=== PATIENT | male | born 1960 | race Caucasian/White ===

== ENCOUNTER → 2020-02-13 15:41 | Outpatient (BNVA) | payer BC, SELFPAY | PROVIDERS: PCP Family Medicine; Visit Provider Family Medicine | DX: I10 Essential (primary) hypertension (principal); F41.9 Anxiety disorder, unspecified; Z23 Encounter for immunization | CPT/HCPCS: 80048 ==

== ENCOUNTER → 2020-03-20 13:39 | Outpatient (BNVA) | payer BC, SELFPAY | PROVIDERS: PCP Family Medicine; Visit Provider Psychiatry & Neurology Psychiatry | DX: F41.9 Anxiety disorder, unspecified (principal); F41.1 Generalized anxiety disorder; F33.1 Major depressive disorder, recurrent, moderate | CPT/HCPCS: 99204 ==

== ENCOUNTER → 2020-04-16 14:31 | Outpatient (BNVA) | payer BC, SELFPAY | PROVIDERS: PCP Family Medicine; Visit Provider Family Medicine | DX: I10 Essential (primary) hypertension (principal); Z12.5 Encounter for screening for malignant neoplasm of prostate | CPT/HCPCS: 80053; 80061; 81015; 85025; G0103 ==

== ENCOUNTER → 2020-04-18 08:40 | Outpatient (BNVA) | payer BC, SELFPAY | PROVIDERS: PCP Family Medicine; Visit Provider Psychiatry & Neurology Psychiatry | DX: F41.9 Anxiety disorder, unspecified (principal); F33.1 Major depressive disorder, recurrent, moderate; F41.1 Generalized anxiety disorder; F17.290 Nicotine dependence, other tobacco product, uncomplicated | CPT/HCPCS: 99213 ==

== ENCOUNTER → 2020-05-24 10:10 | Outpatient (BNVA) | payer BC, SELFPAY | PROVIDERS: PCP Family Medicine; Visit Provider Psychiatry & Neurology Psychiatry | DX: F41.9 Anxiety disorder, unspecified (principal); F33.1 Major depressive disorder, recurrent, moderate; F41.1 Generalized anxiety disorder; F17.290 Nicotine dependence, other tobacco product, uncomplicated | CPT/HCPCS: 99214 ==

== ENCOUNTER → 2020-07-09 07:46 | Outpatient (BNVA) | payer BC, SELFPAY | PROVIDERS: PCP Family Medicine; Visit Provider Psychiatry & Neurology Psychiatry | DX: F41.9 Anxiety disorder, unspecified (principal); F33.1 Major depressive disorder, recurrent, moderate; F41.1 Generalized anxiety disorder; F17.290 Nicotine dependence, other tobacco product, uncomplicated | CPT/HCPCS: 99214 ==

== ENCOUNTER → 2020-07-17 10:08 | Outpatient (BNVA) | payer OTHER, SELFPAY | PROVIDERS: PCP Family Medicine; Visit Provider Family Medicine | DX: I10 Essential (primary) hypertension (principal); E78.5 Hyperlipidemia, unspecified; K51.819 Other ulcerative colitis with unspecified complications; F17.290 Nicotine dependence, other tobacco product, uncomplicated | CPT/HCPCS: 80053; 80061 ==

== ENCOUNTER → 2020-08-07 12:43 | Outpatient (BNVA) | payer OTHER, SELFPAY | PROVIDERS: PCP Family Medicine; Visit Provider Psychiatry & Neurology Psychiatry | DX: F41.1 Generalized anxiety disorder (principal); F41.9 Anxiety disorder, unspecified; F33.1 Major depressive disorder, recurrent, moderate; F17.290 Nicotine dependence, other tobacco product, uncomplicated | CPT/HCPCS: 99214 ==

== ENCOUNTER → 2020-08-14 15:45 | Outpatient (BNVA) | payer OTHER, SELFPAY | PROVIDERS: PCP Family Medicine; Visit Provider Internal Medicine | DX: K51.819 Other ulcerative colitis with unspecified complications (principal); Z01.812 Encounter for preprocedural laboratory examination; E78.5 Hyperlipidemia, unspecified; Z12.5 Encounter for screening for malignant neoplasm of prostate; I10 Essential (primary) hypertension | CPT/HCPCS: 83550; 85025; 85651; 86140; 87635 ==

== ENCOUNTER 2020-08-19 08:26 | Day surgery (SDC) | payer OTHER, SELFPAY ==
[2020-08-15 12:59] VITALS: BMI 28.8
--- NOTE | 2020-08-19 09:02 | ANES.PREANE2 ---
Pre-Anesthetic Assessment Pre-Anesthetic Assessment: Height/Weight: Height 1.78 m Weight 91.172 kg Preop Diagnosis: t Proposed Procedure: Operation Date: 08/19/20 10:30 Proposed Procedures p Colonoscopy 95665 K51.819(Not Applicable) - Ronen Benavides MD Was Beta Ethan taken within 24 hours: Yes Was Clonidine taken within 24 hours: N/A Social: Social History: No alcohol and No tobacco Exam: Pre-Anes Outpt Exam: alert, oriented x 3 and regular rate & rhythm Airway: Submandibular: WNL Cervical ROM: WNL MP: 2 Dentition: False CV/HEM: CV/HEM: Anemia GI: Comments: UC Neuropsych: Neuropsych: Anxiety and Depression Anesthetic Plan: ASA status: 3 Anesthesia: MAC Risk of > 500 ml blood loss (7ml/kg in children): No PFSH Anesthesia PFSH: Medical History (Updated 08/14/20 @ 10:54 by Ronen Benavides MD) Anxiety Depression Essential hypertension Heart disease Hypokalemia Migraines Ulcerative colitis Since 2005. Surgical History H/O cardiac radiofrequency ablation History of neck surgery Family History Other CAD (coronary artery disease) Psychiatric illness Social History Smoking and tobacco status: current every day smoker e-cigarettes E-Cigarette Details: vaporizer device and with nicotine E-cig/vape details: with nicotine Quit status (tobacco): has tried quititng Number of times tried to quit tobacco: 10 Second hand smoke exposure: No Alcohol intake: current Alcohol intake frequency: few times a week Alcohol type: beer Current gender identity: Male Data Anesthesia Cardiac Studies: No Data to Display
[2020-08-19 09:19] VITALS: BP 118/65; PULSE 63; RESP 16; TEMP 36.1; O2SAT 100
[2020-08-19] MEDS: sodium chloride 0.9% 1,000 ML 30 ML IV (09:41)
--- NOTE | 2020-08-19 10:03 | W.PM.OPSUD ---
Surgery/Procedure H&P Update DATE OF PROCEDURE: August 19, 2020 DATE H&P PERFORMED: 08/14/20 PREOP DIAGNOSIS: t PLANNED PROCEDURE: Operation Date: 08/19/20 10:30 Proposed Procedures p Colonoscopy 39297 K51.819(Not Applicable) - Ronen Benavides MD
--- NOTE | 2020-08-19 10:04 | W.PM.OPSUD ---
Surgery/Procedure H&P Update DATE OF PROCEDURE: August 19, 2020 DATE H&P PERFORMED: 08/14/20 PREOP DIAGNOSIS: t PLANNED PROCEDURE: Operation Date: 08/19/20 10:30 Proposed Procedures p Colonoscopy 89823 K51.819(Not Applicable) - Ronen Benavides MD
[2020-08-19 10:50] VITALS: BP 98/54; PULSE 61; RESP 18; TEMP 36.8; O2SAT 97
--- NOTE | 2020-08-19 10:54 | ANE.PACU2 ---
Inpatient post-anesthesia follow up: Airway intact: Yes Vital signs: Temperature 97 F Pulse Rate 63 Respiratory Rate 16 Blood Pressure 118/65 Pulse Oximetry 100 Oxygen Delivery Me thod Room Air Oxygen Flow Rate Fraction of Inspir ed Oxygen Hydration adequate: Yes Nausea and vomiting: No Pain level: 1 Mental status: Baseline
[2020-08-19 11:15] VITALS: BP 131/75; PULSE 56; RESP 18; O2SAT 95
--- NOTE | 2020-08-19 11:23 | SUR.PHASEII ---
1123 CT scan requires prior auth per pts insurance. Pt to be scheduled through centralized scheduling and called with date and time.
[2020-08-19 12:24] LABS: Carcinoembryonic Antigen 1.2 ng/mL (0.0-4.7)
== END 2020-08-19 11:30 | disposition home or self-care (01) ==
PROVIDERS: PCP Family Medicine; Visit Provider Internal Medicine
PROC: 0DJD8ZZ Inspection of Lower Intestinal Tract, Via Natural or Artificial Opening Endoscopic (ICD-10-PCS; CPT 45378; principal; 2020-08-19 10:30)
DX: K51.819 Other ulcerative colitis with unspecified complications (principal); F41.9 Anxiety disorder, unspecified; F32.9 Major depressive disorder, single episode, unspecified; I11.0 Hypertensive heart disease with heart failure; I50.9 Heart failure, unspecified; Z82.49 Family history of ischemic heart disease and other diseases of the circulatory system; F17.290 Nicotine dependence, other tobacco product, uncomplicated
CPT/HCPCS: 36415; 45380; 82378; 88305; 96360; J2704; J7030

== ENCOUNTER 2020-08-23 11:31 | Outpatient (CLI) | payer OTHER, SELFPAY ==
--- NOTE | 2020-08-23 11:43 | CT_ITS ---
WS: [id number] CT ABDOMEN AND PELVIS WITH CONTRAST HISTORY: NEW MASS IN RIGHT COLON TECHNIQUE: Imaging performed of the abdomen and pelvis with IV contrast. Single phase imaging of the abdomen. Coronal and sagittal reformats are submitted. All CT scans at [facility] use at least one of these dose optimization techniques: automated exposure control; mA and/or kV adjustment per patient size (includes targeted exams where dose is matched to clinical indication); or iterativ e reconstruction. IV CONTRAST: Omnipaque 300; 95 mL IV. Oral contrast: Yes. DLP: 1393.97 mGycm COMPARISON: None available. Lower thorax: Lung bases are clear. Heart is normal size. Small hiatal hernia. Liver/biliary system: [facility] LEFT lobe of the liver measures 4 mm. No bile duct dilatation or metastati c lesions. Gallbladder: Normal. No gallstones or wall thickening. No pericholecystic fluid. Pancreas: Normal size pancreas and pancreatic duct. No adjacent inflammation. Spleen: Normal size with granulomata. Adrenal glands: Normal. Right kidney: Small cortical hypodensities are too small to characterize. May be early cyst. No obstr uction. Left kidney: Normal. Aorta: Mild aneurysmal dilatation of the infrarenal aorta to 3.1 cm. Large amount of calcified plaque is not contiguous. There is also intimal thickening is causing mild narrowing of the lumen. Atherosc lerotic changes extend into the iliac arteries bilaterally. Lymphadenopathy: There are numerous but subcentimeter lymph nodes in the mesentery and RIGHT lower qu adrant. Largest lymph nodes measure approximately 8 mm near the celiac axis. Additional 7 to 8 mm lym ph nodes in the RIGHT lower quadrant adjacent to the cecum. Free fluid: None. GI tract: Significant abnormality involving the RIGHT colon. At the terminal ileum and extending into the cecum is a soft tissue mass causing narrowing of the lumen. The solid mass component measures 5. 3 x 5.7 cm. Extending into the ascending colon is a fatty mass with negative Hounsfield units and enh ancing septa. This fatty component extends over a length of 6.6 cm x 7.1 x 4.4 cm. Towards the hepati c flexure and proximal descending colon is diffuse wall thickening. There is no obstruction apparent at this time. The appendix is identified and enters into the mass at the cecum. Abdominal wall: Unremarkable abdominal wall. No hernia. Pelvis: Central prostate gland calcifications. No free fluid. Urinary bladder is negative. Bones: Moderate spondylitic changes in the thoracic and lumbar spines. Schmorl's nodes with no fractu res. CT/CT abdomen pelvis w con* [id number] IMPRESSION: 1. Abnormal cecal mass with extension into the ascending colon and terminal il eum. There is a soft tissue solid mass component at the cecum with an adjacent lipomatous mass with septations extending into the ascending colon with wall th ickening through the mid transverse colon. Neoplasm suspected. There are fatty components could be a liposarcoma. May be a benign lipoma within adjacent colon neoplasm. 2. Base of the appendix is associated with the soft tissue component at the ce cum but no obstruction. 3. Numerous lymph nodes adjacent to the colon. Suspect metastatic involvement although the diameter of the lymph nodes is not significantly enlarged but the number is increased. 4. Mild atherosclerosis and aneurysmal dilatation of the infrarenal aorta to 3 .1 cm. 5. No adrenal mass. Notified Ronen Benavides MD at 08/23/2020 2:08 PM.
[2020-08-23] MEDS: iohexol 300 mg/mL 100 mL Btl IV (13:41)
[2020-08-23] MEDS: iohexol 300 mg/mL 50 mL Btl PO (13:42)
== END 2020-08-23 11:32 | disposition home or self-care (01) ==
LOC: RADWPI 11:37
PROVIDERS: PCP Family Medicine; Visit Provider Internal Medicine
DX: K63.89 Other specified diseases of intestine (principal); I70.0 Atherosclerosis of aorta; I71.4 Abdominal aortic aneurysm, without rupture
CPT/HCPCS: 74177; Q9967

== ENCOUNTER → 2020-09-04 10:50 | Outpatient (BNVA) | payer OTHER, SELFPAY | PROVIDERS: PCP Family Medicine; Visit Provider Surgery | DX: K63.89 Other specified diseases of intestine (principal) | CPT/HCPCS: 87635 ==

== ENCOUNTER 2020-09-09 13:20 | Inpatient (IN) | payer OTHER, SELFPAY ==
[2020-09-06 14:29] VITALS: BMI 28.7
[2020-09-09] VITALS (17 sets, daily range): BP systolic 128–167; BP diastolic 74–95; PULSE 55–86; RESP 12–20; TEMP 36.2–36.8; O2SAT 93–100
[2020-09-09] MEDS: sodium chloride 0.9% 1,000 ML 30 ML IV (08:06)
--- NOTE | 2020-09-09 08:43 | ANES.PREANE2 ---
Pre-Anesthetic Assessment Pre-Anesthetic Assessment: Height/Weight: Height 1.78 m Weight 90.718 kg Temp Pulse Resp BP Pulse Ox 97.9 F 72 18 159/92 98 09/09/20 07:48 09/09/20 07:48 09/09/20 07:48 09/09/20 07:48 09/09/20 07:48 Preop Diagnosis: cecal mass Proposed Procedure: Operation Date: 09/09/20 09:45 Proposed Procedures p Lap poss open right hemicolectomy 78722 K6.89(Not Applicable) - Alden Muñoz MD Familial anesthetic complications: nONE Was Beta Ethan taken within 24 hours: Yes Was Clonidine taken within 24 hours: N/A Last intake: Intake Last Liquid Date 09/08/20 Last Liquid Time 21:00 Last Solid Date 09/07/20 Social: Comment: VAPES Exam: Pre-Anes Outpt Exam: alert, oriented x 3, clear to auscultation bilaterally and regular rate & rhythm Airway: Cervical ROM: WNL MP: 2 Dentition: False CV/HEM: CV/HEM: Anemia and HTN GI: Comments: Ulcerative colitis Neuropsych: Neuropsych: Anxiety Anesthetic Plan: ASA status: 3 Anesthesia: General Risk of > 500 ml blood loss (7ml/kg in children): No Meds/Allergies Current Medications: Current Medications Generic Name Dose Route Start Last Admin Trade Name Freq PRN Reason Stop Dose Admin Sodium Chloride 1,000 mls @ 30 ml s/hr 09/09/20 07:45 09/09/20 08:06 Sodium Chloride 0.9% IV 09/10/20 07:44 30 mls/hr .Q24H PETTY Administration PFSH Anesthesia PFSH: Medical History (Updated 08/20/20 @ 10:44 by Rhonda Nath DO) Anxiety Depression Essential hypertension Heart disease Hypokalemia Migraines Ulcerative colitis Since 2005. Surgical History (Updated 09/02/20 @ 11:30 by Alden Muñoz MD) H/O cardiac radiofrequency ablation History of neck surgery Status post colonoscopy Family History Other CAD (coronary artery disease) Psychiatric illness Social History Smoking and tobacco status: former smoker Second hand smoke exposure: No Alcohol intake: current Alcohol intake frequency: few times a week Alcohol type: beer Current gender identity: Male Data Anesthesia Cardiac Studies: No Data to Display
--- NOTE | 2020-09-09 08:59 | W.PM.OPSUD ---
Surgery/Procedure H&P Update DATE OF PROCEDURE: September 09, 2020 DATE H&P PERFORMED: 09/02/20 H&P UPDATE INFORMATION: I have reviewed H&P completed within last 30 days, I have examined patient prior to procedure and No changes to prior documentation PREOP DIAGNOSIS: cecal mass PLANNED PROCEDURE: Operation Date: 09/09/20 09:45 Proposed Procedures p Lap poss open right hemicolectomy 70589 K6.89(Not Applicable) - Alden Muñoz MD
[2020-09-09] MEDS: metroNIDAZOLE IV 500 MG/100 ML PREMIX 100 MG IV (10:10)
[2020-09-09] MEDS: levofloxacin-dextrose 5 % 500 MG/100 ML PREMIX 100 MG IV (10:22)
--- NOTE | 2020-09-09 12:39 | PM.OP ---
Operative Report Date of procedure: September 09, 2020 Pre-op Diagnosis: cecal mass Post-op diagnosis: same Procedure Done: Laparoscopic right hemicolectomy with extracorporeal ileocolic anastomosis Specimens removed/disposition: Ileum, cecum, ascending colon proximal transverse colon Surgeon: Alden Muñoz Anesthesia: General Condition: stable Disposition: PACU Procedure: The patient was taken to the operating room and placed in the modified lithotomy position under general anesthesia after IV antibiotic had been administered. A Loyola catheter was placed and the abdomen was prepped and draped in a sterile manner. A 2 cm midline supraumbilical incision was made and using open Yu technique the peritoneal cavity was entered and an 11 mm port was placed and 15 mm of pneumoperitoneum was created. 10 mm 30? scope was introduced. 5 mm port was placed in the right upper quadrant, left upper quadrant and in the suprapubic area under direct visualization. The patient was placed in Trendelenburg position and steep tilt to the left placing the small bowel in the left side within the peritoneal cavity and the transverse colon was retracted superiorly. The cecum was retracted laterally and the tenting of the ileocolic pedicle was noted. The peritoneum overlying the pedicle was opened and a window created posterior to the pedicle just lateral to the third portion of the duodenum. Dissection was carried superiorly lateral to the duodenum along the avascular plane. Using Voyent energy device the ileocolic pedicle was divided. The avascular plane was dissected laterally towards the right paracolic gutter and superiorly towards the hepatic flexure.The transverse mesocolon was divided using energy device and this was continued medially. The mid colic vessels were skeletonized and divided with LigaSure. The anterior leaflet of the greater omentum was divided near the midpoint of the transverse colon to enter the lesser sac. The greater omentum was divided and the hepatic flexure was taken down. The dissection was carried along the line of Toldt until the ascending colon and down to ileum to completely free it up. The mesentery of the terminal ileum was divided with a plan for excision of 10cm of ileum. 20 cc of saline mixed with 20 cc of 0.5% Marcaine mixed with 20 cc of Exparel was injected in the midclavicular line under laparoscopic visualization for a TAP block. At this point the pneumoperitoneum was released and the mobilized colon and small bowel was exteriorized through the supraumbilical incision which had been extended and a wound protector had been placed. Interrupted 4-0 Vicryl suture was placed to approximate the ileum to the transverse colon and enterotomies were created on the transverse colon and small bowel and and 75 mm blue load KRISTI stapler was introduced and fired creating a [id number] stapled anastomosis. There was no bleeding noted from the staple line and enterotomies were grasped with Allis clamps and another load of 75 mm blue load KRISTI stapler x 2 was fired to resect the specimen distal to the enterotomies. 4-0 Vicryl sutures were placed on the edges and the intersection of the staple line. The bowel was reintroduced into the peritoneal cavity and the staple line was covered with omentum. The peritoneal cavity was irrigated with saline. All ports were removed under direct visualization and there was no bleeding noted from the port sites. The fascia at the midline incision was closed using running #1 loop PDS. The wound was irrigated with saline, and subcutaneous tissue approximated using 3-0 Vicryl suture and skin at all 4 port sites were closed with 4-0 Monocryl and Dermabond. The patient was transferred to the recovery room in stable condition with a Loyola catheter
--- NOTE | 2020-09-09 12:54 | SUR.PHASEI ---
1254- PATIENT RATES PAIN 8-9 ON 0-10 PAIN SCALE STATING THE ONE IN THE CENTER IS A LITTLE SORE HR 56 BPM, RESPIRATIONS 14. WILL CONTINUE TO MONITOR
[2020-09-09] MEDS: D5-NS 0.45% + KCL 20 mEq 20 MEQ/1,000 ML BAG 100 MEQ IV (14:04)
[2020-09-09] MEDS: famotidine 20 mg/2 mL INJ IVP (14:07)
[2020-09-09] MEDS: HYDROcodone-acetaminophen 5-325 mg Tablet 1 TAB PO ×2 (14:07→20:47)
[2020-09-09] MEDS: morphine 4 mg/mL SDV 1 mL 3 MG IVP ×2 (14:56→16:38)
--- NOTE | 2020-09-09 15:47 | ANE.PACU2 ---
Inpatient post-anesthesia follow up: Airway intact: Yes Vital signs: Temperature 98.2 F Pulse Rate 61 Respiratory Rate 18 Blood Pressure 148/82 Pulse Oximetry 94 Oxygen Delivery Me thod Room Air Oxygen Flow Rate 6 Fraction of Inspir ed Oxygen Hydration adequate: Yes Nausea and vomiting: No Pain level: 3 Mental status: Baseline
[2020-09-09] MEDS: clindamycin 600 MG/50 ML PREMIX 100 MG IV (17:42)
[2020-09-09] MEDS: carvedilol 25 mg Tablet PO (17:46)
[2020-09-09] MEDS: sennosides-docusate Tablet 1 TAB PO (17:46)
[2020-09-09] MEDS: ciprofloxacin 400 MG/200 ML PREMIX 200 MG IV (18:16)
--- NOTE | 2020-09-09 18:53 | PC.NURSE ---
Report to Domitila RUBIO at this time.
[2020-09-09] MEDS: trazodone 50 mg Tablet 100 MG PO (20:47)
[2020-09-10] VITALS (10 sets, daily range): BP systolic 121–154; BP diastolic 62–88; PULSE 62–82; RESP 16–18; TEMP 36.6–37.1; O2SAT 93–96
[2020-09-10] MEDS: D5-NS 0.45% + KCL 20 mEq 20 MEQ/1,000 ML BAG 100 MEQ IV (00:02)
[2020-09-10] MEDS: morphine 4 mg/mL SDV 1 mL 3 MG IVP ×2 (01:06→09:37)
[2020-09-10] MEDS: famotidine 20 mg/2 mL INJ IVP ×2 (01:06→12:25)
[2020-09-10 02:25] LABS: Basophils % 0.1 %; Hematocrit 37.9 % (42.0-52.0); Hemoglobin 11.4 g/dL (11.7-16.6); Lymphocytes # 0.7 10^3/uL (0.8-4.8); Lymphocytes % 5.4 %; Mean Corpuscular HGB Conc 30.1 g/dL (30.0-36.0); Mean Corpuscular Hemoglobin 24.8 pg (28.0-34.0); Mean Corpuscular Volume 82.6 fL (80-94); Mean Platelet Volume 10.2 fL (7.4-10.4); Monocytes # 0.4 10^3/uL (0.2-0.9); Monocytes % 3.1 %; Neutrophils % 91.1 %; Nucleated Red Blood Cells % 0 %; Platelet Count 369 10^3/cmm (130-400); Red Blood Count 4.59 10^6/uL (4.1-5.3); Red Cell Distribution Width 15.1 % (12.1-15.1); White Blood Count 12.9 10^3/uL (4.0-10.0)
[2020-09-10 02:45] LABS: Anion Gap 15.2 (5-19); Blood Urea Nitrogen 12 mg/dL (8-23); Calcium 8.3 mg/dL (8.5-10.5); Carbon Dioxide 19 mmol/L (22-29); Chloride 104 mmol/L (98-107); Glucose 161 mg/dL (65-115); Osmolality Calculated 281 mOsm/kg (285-295); Potassium 4.2 mmol/L (3.5-5.1); Sodium 134 mmol/L (136-145)
[2020-09-10] MEDS: clindamycin 600 MG/50 ML PREMIX 100 MG IV (03:12)
[2020-09-10 03:47] LABS: Carcinoembryonic Antigen 1.4 ng/mL (0.0-4.7)
[2020-09-10] MEDS: ciprofloxacin 400 MG/200 ML PREMIX 200 MG IV (05:58)
[2020-09-10] MEDS: hydroCHLOROthiazide 25 mg Tablet PO (05:58)
[2020-09-10] MEDS: HYDROcodone-acetaminophen 5-325 mg Tablet 1 TAB PO ×2 (08:43→17:04)
[2020-09-10] MEDS: amlodipine 10 mg Tablet PO (08:44)
[2020-09-10] MEDS: sennosides-docusate Tablet 1 TAB PO ×2 (08:44→17:04)
[2020-09-10] MEDS: carvedilol 25 mg Tablet PO ×2 (08:44→17:04)
--- NOTE | 2020-09-10 10:22 | P.PN_ITS ---
Subjective Subjective: Interval history: He denies any vomiting, had episode of nausea, abdominal pain is reasonably controlled, no flatus or BM Vitals/I&O/Wt Last Vital Signs Temp 98.7 F 09/10/20 07:36 Pulse 68 09/10/20 07:36 Resp 18 09/10/20 09:37 BP 149/85 09/10/20 07:36 Pulse Ox 94 09/10/20 07:36 09/09/20 09/10/20 09/10/20 22:59 06:59 14:59 Intake Total 250 / 2196.667 1046.667 / 2196.667 480 / 480 Output Total 350 / 950 450 / 950 800 / 800 Balance -100 / 1246.667 596.667 / 1246.667 -320 / -320 Physical Exam Narrative: EXAM NARRATIVE: Abdomen: Soft, nondistended, tender, incision clean dry and intact Urinary Catheter Management^: F: Cath Placed During This Visit: yes, but has since been removed by the nurse Reason for Continuing Indwelling Catheter: Decision to DC Catheter Urinary Catheter Date of Insertion: 09/09/20 Urinary Catheter Time of Insertion: 10:15 Date Urinary Catheter Removed: 09/10/20 Time Urinary Catheter Discontinued: 09:15 Data : 09/10/20 02:03 09/10/20 02:03 A&P Assessment and plan (1) S/P right hemicolectomy: 60-year-old male status post right hemicolectomy for cecal mass DC Loyola Start clear liquid diet Decrease IV fluids to 30 cc/h Morphine [place] and Tylenol for pain control Senna docusate for bowel regimen Lovenox SCD for DVT prophylaxis Pepcid for GI prophylaxis Ambulate ad monty. Incentive spirometry Patient will need greater than 2 nights of inpatient stay to ensure resolution of ileus and rule out complications Status: Acute Attestations Medical Necessity Statement*: Status post right hemicolectomy requiring continued inpatient stay Coding Level of Care Code Acute [employer] Ac[employer] Attorney for Chg Fwd Diagnoses S/P right hemicolectomy Z90.49
--- NOTE | 2020-09-10 12:38 | PC.CHAP ---
Pastoral Care Encounter/Spiritual Assessment Type of Contact [] Declined project geologist visit [x] Patient/Family/Request visit [] Outpatient visit [] Follow-up visit [] Physician referral [] Code/Alert [x] Routine visit [] Staff referral [] Actively dying [] Patient sleeping [] Family support [] [] Out of room [] Palliative care [] [] Receiving care in room [] Pre-surgical visit [] Trauma [] Long length of stay [] ICU visit [] Other: Relational/Emotional Strength [x] Patient feels connected with others/family/visitors/staff [] Distress [] Loneliness/isolation [] Abandonment Spirituality of Patient [x] Person of [place] [x] Attends Jain of their [place] [x] Believes in Prayer [] Reads Bible or Amish materials [] There are Spiritual issues to be addressed Senior Grants Officer Interventions [x] Prayer [] Active listening [] Non-anxious presence [] Spiritual/emotional support [] Crisis/trauma care [] Spiritual counseling [] Bereavement support [] Provided bereavement packet [] Provided Bible/devotional materials [] Provided toy/stuffed animal, coloring book to patient or family member [] Provided Communion [] Anointing/Protem [] Salvation [] Completed spiritual assessment [] Other: Impact on Illness or Injury [] Angry [] Fearful [] Anxious [] Often cries [] Exhaustion [] Unable to work [] Unable to attend church [] Unable to walk/stand [] Unable to read [] Unable to drive [] Unable to eat/drink [] Unable to sleep [] Unable to be with family [] Patient intubated [] Other: Summary Had a great visit with this godly couple. His was present. Both were happy, positive in their outlook, and connected to life. We shared names of people we knew and of their own family. Time spent with patient 10 minutes at least.
--- NOTE | 2020-09-10 13:54 | PC.NURSE ---
AMBULATION PT HAS AMBULATED MULTIPLE TIMES IN [facility] - AT SIDE
[2020-09-11] VITALS (13 sets, daily range): BP systolic 106–177; BP diastolic 66–92; PULSE 62–82; RESP 18–20; TEMP 35–37.9; O2SAT 91–98
[2020-09-11] MEDS: D5-NS 0.45% + KCL 20 mEq 20 MEQ/1,000 ML BAG 30 MEQ IV (00:27)
[2020-09-11] MEDS: HYDROcodone-acetaminophen 5-325 mg Tablet 1 TAB PO ×2 (00:27→07:21)
[2020-09-11] MEDS: famotidine 20 mg/2 mL INJ IVP ×2 (02:44→14:21)
[2020-09-11 02:48] LABS: Basophils % 0.2 %; Eosinophils % 0.1 %; Hematocrit 38.3 % (42.0-52.0); Hemoglobin 11.8 g/dL (11.7-16.6); Lymphocytes # 1.8 10^3/uL (0.8-4.8); Lymphocytes % 10.5 %; Mean Corpuscular HGB Conc 30.8 g/dL (30.0-36.0); Mean Corpuscular Hemoglobin 24.8 pg (28.0-34.0); Mean Corpuscular Volume 80.5 fL (80-94); Mean Platelet Volume 10.7 fL (7.4-10.4); Monocytes % 5.7 %; Neutrophils # 13.89 10^3/uL (1.8-7.7); Nucleated Red Blood Cells % 0 %; Platelet Count 400 10^3/cmm (130-400); Red Blood Count 4.76 10^6/uL (4.1-5.3); Red Cell Distribution Width 15.2 % (12.1-15.1); White Blood Count 16.7 10^3/uL (4.0-10.0)
[2020-09-11 03:10] LABS: Anion Gap 13.1 (5-19); Blood Urea Nitrogen 12 mg/dL (8-23); Calcium 8.7 mg/dL (8.5-10.5); Carbon Dioxide 23 mmol/L (22-29); Chloride 105 mmol/L (98-107); Glucose 111 mg/dL (65-115); Osmolality Calculated 284 mOsm/kg (285-295); Potassium 4.1 mmol/L (3.5-5.1); Sodium 137 mmol/L (136-145)
[2020-09-11] MEDS: morphine 4 mg/mL SDV 1 mL 3 MG IVP ×3 (03:37→20:04)
[2020-09-11] MEDS: hydroCHLOROthiazide 25 mg Tablet PO (06:17)
[2020-09-11] MEDS: amlodipine 10 mg Tablet PO (08:29)
[2020-09-11] MEDS: carvedilol 25 mg Tablet PO ×2 (08:29→17:55)
[2020-09-11] MEDS: sennosides-docusate Tablet 1 TAB PO ×2 (08:29→17:55)
--- NOTE | 2020-09-11 11:10 | P.PN_ITS ---
Subjective Subjective: Interval history: Patient had been complaining of abdominal pain, had a small episode of emesis, no flatus or BM Vitals/I&O/Wt Last Vital Signs Temp 98.7 F 09/11/20 09:15 Pulse 74 09/11/20 09:15 Resp 18 09/11/20 09:15 BP 134/74 09/11/20 09:15 Pulse Ox 96 09/11/20 09:15 09/10/20 09/11/20 09/11/20 22:59 06:59 14:59 Intake Total 1820 / 2905 125 / 2905 240 / 240 Output Total 250 / 1925 875 / 1925 Balance 1570 / 980 -750 / 980 240 / 240 Physical Exam Narrative: EXAM NARRATIVE: Abdomen: Soft, nondistended, tender, incision clean dry and intact Urinary Catheter Management^: F: Cath Placed During This Visit: yes, but has since been removed by the nurse Reason for Continuing Indwelling Catheter: Decision to DC Catheter Urinary Catheter Date of Insertion: 09/09/20 Urinary Catheter Time of Insertion: 10:15 Date Urinary Catheter Removed: 09/10/20 Time Urinary Catheter Discontinued: 09:15 Data : 09/11/20 02:09 09/11/20 02:09 A&P Assessment and plan (1) S/P right hemicolectomy: 60-year-old male status post right hemicolectomy for cecal mass with postop ileus WBC increased to 16.7, patient had T-max of 100.3, not tachycardic. started Levaquin and Flagyl empirically Vitals every 4 hours Stay on clear liquid diet Keep IV fluids at 30 cc/h Morphine [place] and Tylenol for pain control Senna docusate for bowel regimen Lovenox SCD for DVT prophylaxis Pepcid for GI prophylaxis Ambulate ad monty. 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
[2020-09-11] MEDS: ondansetron 2 mg/ML SDV 2 mL 4 MG IVP (11:32)
[2020-09-11] MEDS: enoxaparin 40 mg/0.4 mL Syringe SUBCUT (11:32)
[2020-09-11] MEDS: acetaminophen 325 mg Tablet 650 MG PO (11:32)
[2020-09-11] MEDS: metroNIDAZOLE 500 MG Tablet PO ×2 (14:21→20:04)
[2020-09-11] MEDS: ALPRAZolam 0.5 mg Tablet PO (20:04)
[2020-09-12] MEDS: famotidine 20 mg/2 mL INJ IVP ×2 (01:23→12:39)
[2020-09-12 02:39] LABS: Basophils % 0.3 %; Eosinophils # 0.1 10^3/uL (0.0-0.8); Eosinophils % 0.7 %; Hematocrit 38.9 % (42.0-52.0); Lymphocytes # 2.4 10^3/uL (0.8-4.8); Lymphocytes % 17.8 %; Mean Corpuscular HGB Conc 30.8 g/dL (30.0-36.0); Mean Corpuscular Hemoglobin 24.8 pg (28.0-34.0); Mean Corpuscular Volume 80.5 fL (80-94); Mean Platelet Volume 10.5 fL (7.4-10.4); Monocytes % 7.5 %; Neutrophils # 9.71 10^3/uL (1.8-7.7); Neutrophils % 73.3 %; Nucleated Red Blood Cells % 0 %; Platelet Count 408 10^3/cmm (130-400); Red Blood Count 4.83 10^6/uL (4.1-5.3); Red Cell Distribution Width 15.3 % (12.1-15.1); White Blood Count 13.2 10^3/uL (4.0-10.0)
[2020-09-12 03:01] LABS: Anion Gap 13.8 (5-19); Blood Urea Nitrogen 17 mg/dL (8-23); Calcium 8.6 mg/dL (8.5-10.5); Carbon Dioxide 24 mmol/L (22-29); Chloride 102 mmol/L (98-107); Glucose 114 mg/dL (65-115); Osmolality Calculated 284 mOsm/kg (285-295); Potassium 3.8 mmol/L (3.5-5.1); Sodium 136 mmol/L (136-145)
[2020-09-12 04:35] VITALS: BP 109/69; PULSE 71; RESP 18; TEMP 37; O2SAT 92
[2020-09-12] MEDS: HYDROcodone-acetaminophen 5-325 mg Tablet 1 TAB PO ×3 (04:46→18:28)
[2020-09-12] MEDS: D5-NS 0.45% + KCL 20 mEq 20 MEQ/1,000 ML BAG 30 MEQ IV (04:47)
[2020-09-12] MEDS: levoFLOXacin 750 mg Tablet PO (05:45)
[2020-09-12] MEDS: hydroCHLOROthiazide 25 mg Tablet PO (05:45)
--- NOTE | 2020-09-12 05:47 | PC.NURSE ---
SHIFT SUMMARY Says he rested much better tonight. Took a Xanax at bedtime and says really helped. Has ambulated in gaspar this shift and andres well. Still is not passing flatus or had a BM but says he can feel his stomach starting to rumble some All incisions, 3 stabs and medial incision C&D with dermabond closure. Abd soft with tenderness present. Urinating per urinal and taking clear liquids without nausea tonight. IV infusing at 30m/hr rate. Received IV Morphine X1 at bedtime and po Hydrocodone this am for abd pain. Is very pleasant
--- NOTE | 2020-09-12 06:59 | P.PN_ITS ---
Subjective Subjective: Interval history: Patient had been feeling a lot better, no nausea or vomiting, no flatus or BM, has been afebrile, does not feel distended Vitals/I&O/Wt Last Vital Signs Temp 97.5 F L 09/12/20 12:00 Pulse 50 L 09/12/20 12:00 Resp 18 09/12/20 12:00 BP 139/79 09/12/20 12:00 Pulse Ox 96 09/12/20 12:00 09/12/20 09/12/20 09/12/20 06:59 14:59 22:59 Intake Total 210 / 1240 360 / 360 Output Total 500 / 700 100 / 100 Balance -290 / 540 260 / 260 Physical Exam Narrative: EXAM NARRATIVE: Abdomen: Soft, minimally tender, nondistended, incision clean dry intact Urinary Catheter Management^: F: Cath Placed During This Visit: yes, but has since been removed by the nurse Reason for Continuing Indwelling Catheter: Decision to DC Catheter Urinary Catheter Date of Insertion: 09/09/20 Urinary Catheter Time of Insertion: 10:15 Date Urinary Catheter Removed: 09/10/20 Time Urinary Catheter Discontinued: 09:15 Data : 09/13/20 05:42 09/13/20 05:42 A&P Assessment and plan (1) S/P right hemicolectomy: 60-year-old male status post right hemicolectomy for cecal mass with postop ileus, awaiting return of bowel function WBC down to 13.2, afebrile, not tachycardic. started Levaquin and Flagyl empirically Vitals every 4 hours Stay on clear liquid diet Keep IV fluids at 30 cc/h Morphine [place] and Tylenol for pain control Senna docusate for bowel regimen Lovenox SCD for DVT prophylaxis Pepcid for GI prophylaxis Ambulate ad monty. Incentive spirometry Patient will need greater than 2 nights of inpatient stay to ensure resolution of ileus and rule out complications Status: Acute Attestations Medical Necessity Statement*: Status post right hemicolectomy requiring continued inpatient stay to ensure resolution of ileus Coding Level of Care Code Acute Wildlife Science Professor for Mer Fwbriana Diagnoses S/P right hemicolectomy Z90.49
[2020-09-12 08:00] VITALS: BP 113/83; PULSE 82; RESP 18; TEMP 37; O2SAT 97
[2020-09-12] MEDS: carvedilol 25 mg Tablet PO ×2 (08:47→17:28)
[2020-09-12] MEDS: metroNIDAZOLE 500 MG Tablet PO ×3 (08:47→20:30)
[2020-09-12] MEDS: sennosides-docusate Tablet 1 TAB PO ×2 (08:47→17:28)
[2020-09-12] MEDS: amlodipine 10 mg Tablet PO (08:47)
[2020-09-12] MEDS: enoxaparin 40 mg/0.4 mL Syringe SUBCUT (10:59)
[2020-09-12 12:00] VITALS: BP 139/79; PULSE 50; RESP 18; TEMP 36.4; O2SAT 96
[2020-09-12] MEDS: acetaminophen 325 mg Tablet 650 MG PO (15:25)
[2020-09-12 16:00] VITALS: BP 117/83; PULSE 69; RESP 18; TEMP 36.8; O2SAT 97
[2020-09-12 19:40] VITALS: BP 113/59; PULSE 60; RESP 18; TEMP 36.6; O2SAT 94
[2020-09-12] MEDS: ALPRAZolam 0.5 mg Tablet PO (20:42)
[2020-09-13 00:04] VITALS: BP 114/77; PULSE 63; RESP 18; TEMP 36.7; O2SAT 94
[2020-09-13] MEDS: famotidine 20 mg/2 mL INJ IVP ×2 (01:44→12:53)
[2020-09-13 04:25] VITALS: BP 135/81; PULSE 77; RESP 18; TEMP 36.7; O2SAT 95
[2020-09-13] MEDS: levoFLOXacin 750 mg Tablet PO (05:53)
[2020-09-13] MEDS: hydroCHLOROthiazide 25 mg Tablet PO (05:53)
[2020-09-13 06:12] LABS: Basophils # 0.1 10^3/uL (0.0-0.1); Basophils % 0.5 %; Eosinophils # 0.3 10^3/uL (0.0-0.8); Eosinophils % 2.9 %; Hematocrit 39.3 % (42.0-52.0); Hemoglobin 12.1 g/dL (11.7-16.6); Lymphocytes # 1.8 10^3/uL (0.8-4.8); Lymphocytes % 15.9 %; Mean Corpuscular HGB Conc 30.8 g/dL (30.0-36.0); Mean Corpuscular Hemoglobin 24.4 pg (28.0-34.0); Mean Corpuscular Volume 79.4 fL (80-94); Mean Platelet Volume 10.2 fL (7.4-10.4); Monocytes % 8.8 %; Neutrophils # 8.18 10^3/uL (1.8-7.7); Neutrophils % 71.2 %; Nucleated Red Blood Cells % 0 %; Platelet Count 395 10^3/cmm (130-400); Red Blood Count 4.95 10^6/uL (4.1-5.3); Red Cell Distribution Width 15.1 % (12.1-15.1); White Blood Count 11.5 10^3/uL (4.0-10.0)
[2020-09-13 06:31] LABS: Anion Gap 14.5 (5-19); Blood Urea Nitrogen 17 mg/dL (8-23); Calcium 8.6 mg/dL (8.5-10.5); Carbon Dioxide 25 mmol/L (22-29); Chloride 100 mmol/L (98-107); Glucose 97 mg/dL (65-115); Osmolality Calculated 283 mOsm/kg (285-295); Potassium 3.5 mmol/L (3.5-5.1); Sodium 136 mmol/L (136-145)
[2020-09-13 08:00] VITALS: BP 141/94; PULSE 73; RESP 16; TEMP 36.8; O2SAT 97
[2020-09-13] MEDS: carvedilol 25 mg Tablet PO ×2 (08:06→17:15)
[2020-09-13] MEDS: amlodipine 10 mg Tablet PO (08:06)
[2020-09-13] MEDS: sennosides-docusate Tablet 1 TAB PO (08:06)
[2020-09-13] MEDS: metroNIDAZOLE 500 MG Tablet PO ×2 (08:06→14:55)
[2020-09-13] MEDS: HYDROcodone-acetaminophen 5-325 mg Tablet 1 TAB PO ×2 (08:15→14:57)
[2020-09-13 11:55] VITALS: BP 113/81; PULSE 60; RESP 16; TEMP 36.7; O2SAT 60
[2020-09-13] MEDS: enoxaparin 40 mg/0.4 mL Syringe SUBCUT (12:53)
--- NOTE | 2020-09-13 15:50 | P.PN_ITS ---
Subjective Subjective: Interval history: Patient denies any abdominal pain, nausea, vomiting, tolerating clear liquid diet, had bowel movements last night Vitals/I&O/Wt Last Vital Signs Temp 98.1 F 09/13/20 11:55 Pulse 60 09/13/20 11:55 Resp 16 09/13/20 11:55 BP 113/81 09/13/20 11:55 Pulse Ox 60 L 09/13/20 11:55 09/13/20 09/13/20 09/13/20 06:59 14:59 22:59 Intake Total 120 / 120 Output Total 575 / 675 351 / 351 Balance -575 / 165 -231 / -231 Physical Exam Narrative: EXAM NARRATIVE: Abdomen: Soft, nontender, nonrigid, incisions healing well Urinary Catheter Management^: F: Cath Placed During This Visit: yes, but has since been removed by the nurse Reason for Continuing Indwelling Catheter: Decision to DC Catheter Urinary Catheter Date of Insertion: 09/09/20 Urinary Catheter Time of Insertion: 10:15 Date Urinary Catheter Removed: 09/10/20 Time Urinary Catheter Discontinued: 09:15 Data : 09/13/20 05:42 09/13/20 05:42 A&P Assessment and plan (1) S/P right hemicolectomy: 60-year-old male status post right hemicolectomy for cecal mass with postop ileus, awaiting return of bowel function WBC down to 11.5, afebrile, not tachycardic. On Levaquin and Flagyl empirically Vitals every 4 hours Advance to full liquid diet DC IV fluids Morphine [place] and Tylenol for pain control Senna docusate for bowel regimen Lovenox SCD for DVT prophylaxis Pepcid for GI prophylaxis Ambulate ad monty. Incentive spirometry If patient continues to progress hopefully can go home tomorrow Status: Acute Attestations Medical Necessity Statement*: Status post right hemicolectomy, possible discharge tomorrow Coding Level of Care Code Acute Volunteer Assistant for Chg Fwd Diagnoses S/P right hemicolectomy Z90.49
[2020-09-13 16:00] VITALS: BP 113/80; PULSE 81; RESP 16; TEMP 36.4; O2SAT 96
--- NOTE | 2020-09-13 17:56 | P.DS_ITS ---
Discharge Providers Date of Admission: 09/09/20 13:20 Date of Discharge: September 13, 2020 Attending Provider at Admission: Alden Muñoz MD Attending Provider at Discharge: Alden Muñoz MD Primary Care Provider: Rhonda Nath DO Diagnoses at Discharge Discharge Diagnosis (1) S/P right hemicolectomy: Status: Acute Reason for Visit Reason for Visit: lap poss open right hemicoletomy Hospital Course Hospital Course This is a 60-year-old [id number] who underwent lap right hemicolectomy , by day 4 patient had return of bowel function. At time of discharge he was tolerating full liquid diet, his vital signs are stable and his incision is clean dry and intact. His mesalamine has been discontinued for 2 weeks until his follow-up in clinic. 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 Physical Exam Urinary Catheter Management^: F: Cath Placed During This Visit: yes, but has since been removed by the nurse Reason for Continuing Indwelling Catheter: Decision to DC Catheter Urinary Catheter Date of Insertion: 09/09/20 Urinary Catheter Time of Insertion: 10:15 Date Urinary Catheter Removed: 09/10/20 Time Urinary Catheter Discontinued: 09:15 Discharge Data Data Completed and Pending: Completed Studies During Hospitalization Category Date Time Status Pathology: Surgic al [PTH] Routine Pth 09/09/20 12:30 Completed Pending at discharge Category Date Time Status Basic Metabolic P javi AM LABS Lab 09/14/20 04:00 Ordered Basic Metabolic P javi AM LABS Lab 09/15/20 04:00 Ordered Complete Blood Co unt w/Auto AM LABS Lab 09/14/20 04:00 Ordered Complete Blood Co unt w/Auto AM LABS Lab 09/15/20 04:00 Ordered Labs from last 24 hours 09/13/20 09/13/20 05:42 05:42 WBC 11.5 H RBC 4.95 Hgb 12.1 Hct 39.3 L MCV 79.4 L MCH 24.4 L MCHC 30.8 RDW 15.1 Plt Count 395 MPV 10.2 Neut % (Auto) 71.2 Lymph % (Auto) 15.9 [place] % (Auto) 8.8 Eos % (Auto) 2.9 Baso % (Auto) 0.5 Neut # (Auto) 8.18 H Lymph # (Auto) 1.8 [place] # (Auto) 1.0 H Eos # (Auto) 0.3 Baso # (Auto) 0.1 Nucleated RBC % (a uto) 0 Nucleated RBCs # 0.0 Sodium 136 Potassium 3.5 Chloride 100 Carbon Dioxide 25 Anion Gap 14.5 BUN 17 Creatinine 1.0 GFR Calculation 76.0 L Glucose 97 Calculated Osmolal ity 283 L Calcium 8.6 Vitals: Last Vital Signs Temp 97.6 F 09/13/20 16:00 Pulse 81 09/13/20 16:00 Resp 16 09/13/20 16:00 BP 113/80 09/13/20 16:00 Pulse Ox 96 09/13/20 16:00 Discharge Plan Discharge Patient Disposition: Home Condition: Stable Prescriptions: New hydrocodone-acetaminophen 5-325 mg tablet 1 tab PO Q6H PRN (Reason: pain) Qty: 20 RF: 0 hydrocodone-acetaminophen 5-325 mg tablet 1 tab PO Q6H PRN (Reason: pain) Qty: 20 RF: 0 Zofran 4 mg tablet 4 mg PO Q6H PRN (Reason: nausea and vomiting) Qty: 20 RF: 0 Flagyl 500 mg tablet 500 mg PO Q8H 5 Days Qty: 15 RF: 0 Colace 100 mg capsule 100 mg PO BID Qty: 30 RF: 0 levofloxacin 750 mg tablet 750 mg PO DAILY 5 Days RF: 0 Continued eletriptan 40 mg tablet 40 mg PO Q2H PRN (Reason: Migraine Headache) RF: 0 trazodone 50 mg tablet 100 mg PO .HS PRN (Reason: insomnia) Qty: 60 RF: 2 fluoxetine [Prozac] 20 mg capsule 60 mg PO DAILY Qty: 90 RF: 2 melatonin 3 mg capsule 3 mg PO .HS PRN (Reason: sleep) RF: 0 alprazolam 0.5 mg tablet 0.5 mg PO DAILY PRN (Reason: anxiety) Qty: 15 RF: 0 dicyclomine 10 mg capsule 10 mg PO QID PRN (Reason: cramping) Qty: 120 RF: 0 amlodipine 10 mg tablet 10 mg PO DAILY Qty: 90 RF: 0 carvedilol [Coreg] 25 mg tablet 25 mg PO BID Qty: 180 RF: 0 hydrochlorothiazide 25 mg tablet 25 mg PO QAM Qty: 90 RF: 0 ezetimibe [Zetia] 10 mg tablet 10 mg PO DAILY Qty: 90 RF: 0 potassium chloride 10 mEq capsule, extended release 10 meq PO BID Qty: 180 RF: 1 Discontinued mesalamine [Apriso] 0.375 gram capsule,extended release 24hr 1.5 gm PO QAM RF: 0 erythromycin 500 mg tablet 500 mg PO DAILY Qty: 3 RF: 0 neomycin 500 mg tablet 1 g PO ONCE Qty: 6 RF: 0 Discharge Orders: Discharge Order (Routine); Ordered 09/13/20 Ordered By: Alden Muñoz Referrals: Alden Muñoz MD [Physician] - 2 weeks (Please contact Dr. Muñoz's office Wednesday morning to schedule an appointment within 2 weeks. ) Patient Instructions: Hydrocodone/Acetaminophen (By mouth), Metronidazole (By mouth), Laxative, Stool Softeners (By mouth), Ondansetron (By mouth), Levofloxacin (By mouth), Laparoscopic Bowel Resection (DC), Opioid Safety Activity Restrictions/Additional Instructions: Diet Advance to normal diet as tolerated, increase fluid intake as much as possible. Activity Avoid strenuous activity for 2 weeks but continue with daily activities inc luding walking as tolerated. Do not lift more than 10 pounds for 2 weeks Return to work/school You can return to work/ school whenever you feel ready as long as you don?t have to lift more than 10 pounds at work. If you have paperwork that needs to be completed for time off from work, please contact my office Driving You can resume driving once you stop using narcotic pain medications, and tr ansition to non-opioid pain medications like Tylenol, Motrin, Aleve, etc. Medications Pain Take opioid pain medications as prescribed and transition to non-opioid pain medications like Tylenol, Motrin, Aleve etc. over the next few days. The goal of the pain medications is to make the pain bearable and not to be pain free since you recently had surgery. Resume all home medications after surgery as per the medication reconciliation list Nausea Nausea is common after surgery, take nausea medications as needed and stay on a liquid bland diet until nausea resolves. Constipation The combination of surgery, anesthesia and pain medications can result in constipation. Take stool softeners as prescribed. If you do not have a bowel movement in 3 days, please take an xzgk-mzi-panadux laxative like MiraLAX to address the constipation. Diarrhea Use Metamucil if you develop significant diarrhea and avoid stool softeners and laxatives Shower It is ok to shower but avoid getting the wound wet for 48 hours after surgery. Do not soak in bathtub, swimming pool or hot tub for 2 weeks. Wound care If glue has been used on your incisions after surgery, the glue on the incision will peel slowly over the next two weeks. The stitches used are dissolvable and will not need to be removed. Do not apply antibiotics or other medications on the incision Problems with the wound: you can develop some redness around the incision from bruising after surgery. If there is increasing pain, redness, tenderness around the incision with or without drainage, please contact my office to rule out an infection. Sometimes the skin at the incisions can separate, resulting in reopening of the wound. Cover the wound with antibiotic cream and sterile dressings and contact my office. Contact physician Call the office at [phone] during office hours or go the Emergency Room ?Fever to 100.4 or greater ?Shaking chills ?Pain that increases over time ?Redness, warmth, or pus draining from incision sites ?Persistent nausea or inability to take in liquids Discharge Attestations Time Spent in Discharge Care*: less than 30 min Quality Metrics Clinical Quality Measures During this hospital stay, did patient experience: None Coding Level of Care Code Acute Chg FW ALLEY note Diagnoses S/P right hemicolectomy Z90.49
[2020-09-13 18:32] VITALS: BP 113/80; PULSE 81; RESP 16; TEMP 36.4; O2SAT 96
== END 2020-09-13 18:35 | disposition home or self-care (01) | DRG 330 ==
LOC: MEDSURG 15:36
PROVIDERS: Admitting Provider Surgery; PCP Family Medicine; Visit Provider Surgery
PROC: 0DTF4ZZ Resection of Right Large Intestine, Percutaneous Endoscopic Approach (ICD-10-PCS; principal; 2020-09-09 09:45)
DX: K63.9 Disease of intestine, unspecified (principal); K51.90 Ulcerative colitis, unspecified, without complications; F41.9 Anxiety disorder, unspecified; F32.9 Major depressive disorder, single episode, unspecified; I10 Essential (primary) hypertension; Z87.891 Personal history of nicotine dependence
CPT/HCPCS: 36415; 80048; 82378; 85025; 88305; 94664; 96372; 97116; 97161; C9290; J0744; J1650; J1956; J2270; J2370; J2405; J2710; J3010; J3490; J7030; S0030

== ENCOUNTER → 2021-05-19 10:18 | Outpatient (BNVA) | payer MEDICARE, SELFPAY | PROVIDERS: PCP Family Medicine; Visit Provider Family Medicine | DX: I10 Essential (primary) hypertension (principal); E78.5 Hyperlipidemia, unspecified | CPT/HCPCS: 80053; 80061; 82043 ==

== ENCOUNTER 2021-07-03 10:54 | Outpatient (CLI) | payer MEDICARE, SELFPAY ==
--- NOTE | 2021-07-03 11:22 | XR_ITS ---
WS: [id number] Cervical spine, 3 views, 07/03/2021 Clinical Data: acute neck pain Comparison: None. Findings: No compression fractures are seen. There is an anterior cervical disc fusion at C5-C6 with an artificial disc at this level. There is degenerative disc narrowing with anterior and posterior sp urring at C6-C7 There is no prevertebral soft tissue swelling. The odontoid is unremarkable. There ar e calcifications at the level of the carotid bifurcations. The lung apices are normal. XR/XR cervical spine 3V* [id number] Impression: 1. Anterior cervical disc fusion C5-C6. 2. Degenerative disc narrowing at C6-C7 with spurring 2. Minimal calcification at the level of the carotid bifurcations.
== END 2021-07-03 10:55 | disposition home or self-care (01) ==
PROVIDERS: PCP Family Medicine; Visit Provider Family Medicine
DX: M54.2 Cervicalgia (principal); M43.22 Fusion of spine, cervical region
CPT/HCPCS: 72040

== ENCOUNTER → 2021-07-10 10:23 | Outpatient (BNVA) | payer MEDICARE, SELFPAY | PROVIDERS: PCP Family Medicine; Referring Provider Family Medicine; Visit Provider Anesthesiology Pain Medicine | DX: M51.17 Intervertebral disc disorders with radiculopathy, lumbosacral region (principal); M79.602 Pain in left arm; M79.601 Pain in right arm; Z87.891 Personal history of nicotine dependence; M54.2 Cervicalgia | CPT/HCPCS: 99204 ==

== ENCOUNTER → 2021-08-06 09:41 | Outpatient (BNVA) | payer MEDICARE, SELFPAY | PROVIDERS: PCP Family Medicine; Visit Provider Anesthesiology Pain Medicine | DX: M54.12 Radiculopathy, cervical region (principal); M79.602 Pain in left arm; M79.601 Pain in right arm; Z79.891 Long term (current) use of opiate analgesic; Z87.891 Personal history of nicotine dependence | CPT/HCPCS: 99213; 99214 ==

== ENCOUNTER 2021-08-26 07:01 | Outpatient (CLI) | payer MEDICARE, SELFPAY ==
--- NOTE | 2021-08-26 07:15 | MR_ITS ---
WS: [id number] MRI CERVICAL SPINE NONCONTRAST TECHNIQUE: Sagittal T1, T2 and STIR imaging. Axial T2, gradient, and fiesta imaging. CLINICAL INFORMATION: M54.12 - Radiculopathy, cervical region FINDINGS: Straightening of the normal cervical lordosis. ACDF C5-C6. Cord signal is normal. No high-grade centr al canal stenosis. 2.2 cm retention cyst LEFT maxillary sinus. C2-C3: Disc osteophytic ridging. Moderate LEFT and mild RIGHT bony foraminal narrowing. C3-C4: Mild disc osteophyte complex with endplate ridging. Moderate RIGHT and mild LEFT bony foramina l narrowing. Spinal canal is patent. Mild facet arthropathy. C4-C5: Disc osteophyte complex with endplate ridging. Moderate RIGHT and mild LEFT bony foraminal ravi rowing. Mild facet arthropathy. Spinal canal is patent. C5-C6: Postoperative changes ACDF. Moderate bilateral bony foraminal narrowing worse in the LEFT. Mod erate facet arthropathy. Spinal canal is patent. C6-C7: Disc osteophyte complex with endplate ridging eccentric to the LEFT. Moderate central canal st enosis. Slight indentation LEFT ventral cervical cord. Moderate to severe LEFT and moderate RIGHT bon y foraminal narrowing. Mild facet arthropathy. C7-T1: Mild disc osteophytic ridging. Spinal canal is patent. Mild LEFT and no significant RIGHT fora [place]ana narrowing. Visualized brain stem structures: Normal. Prevertebral soft tissues: Normal. MR/MR cervical spin wo con* [id number] IMPRESSION: 1. Straightening of the normal cervical lordosis. Prior postoperative changes ACDF C5-C6. 2. Spinal canal is patent at the fusion level. Moderate bilateral bony foramin al narrowing at this level LEFT greater than RIGHT. Moderate facet arthropathy. 3. LEFT pericentral disc osteophytic protrusion C6-C7 with slight contact of t he LEFT ventral cervical cord and mild central canal stenosis. Moderate to pooja re LEFT C6-C7 bony foraminal narrowing. 4. Multilevel bony foraminal narrowing worse at RIGHT C3-C4, RIGHT C4-C5, bila teral C5-C6 worse in the LEFT, LEFT C6-C7 and LEFT C7-T1.
== END 2021-08-26 07:02 | disposition home or self-care (01) ==
LOC: RAD 07:03
PROVIDERS: PCP Family Medicine; Visit Provider Anesthesiology Pain Medicine
DX: M54.12 Radiculopathy, cervical region (principal)
CPT/HCPCS: 72141

== ENCOUNTER → 2021-09-03 09:45 | Outpatient (BNVA) | payer MEDICARE, SELFPAY | PROVIDERS: PCP Family Medicine; Visit Provider Anesthesiology Pain Medicine | DX: M54.12 Radiculopathy, cervical region (principal); M79.602 Pain in left arm; M79.601 Pain in right arm; Z87.891 Personal history of nicotine dependence; Z79.891 Long term (current) use of opiate analgesic | CPT/HCPCS: 99215 ==

== ENCOUNTER → 2021-09-18 13:02 | Outpatient (BNVA) | payer MEDICARE, SELFPAY | PROVIDERS: PCP Family Medicine; Visit Provider Anesthesiology Pain Medicine | DX: Z87.891 Personal history of nicotine dependence (principal); Z79.891 Long term (current) use of opiate analgesic; M54.12 Radiculopathy, cervical region | CPT/HCPCS: 62321; J1100 ==

== ENCOUNTER → 2021-10-02 09:27 | Outpatient (BNVA) | payer MEDICARE, SELFPAY | PROVIDERS: PCP Family Medicine; Visit Provider Anesthesiology Pain Medicine | DX: M54.12 Radiculopathy, cervical region (principal); M79.602 Pain in left arm; M79.601 Pain in right arm; Z79.891 Long term (current) use of opiate analgesic; Z87.891 Personal history of nicotine dependence | CPT/HCPCS: 99214 ==

== ENCOUNTER 2021-10-03 09:57 | Emergency (ER) | payer MEDICARE, SELFPAY ==
[2021-10-03 10:08] VITALS: BP 152/107; PULSE 105; RESP 18; TEMP 36.3; O2SAT 100; BMI 29.5
--- NOTE | 2021-10-03 10:45 | CTR_ITS ---
PROCEDURE INFORMATION: Exam: CT Abdomen And Pelvis Without Contrast Exam date and time: 10/03/2021 11:00 AM Age: 61 years old Clinical indication: Generalized; Prior surgery; Surgery date: 6+ months; Surgery type: Bowel tumor resection; Patient HX: Abdominal pain, hematochezia TECHNIQUE: Imaging protocol: Computed tomography of the abdomen and pelvis without contrast. Radiation optimization: All CT scans at this facility use at least one of these dose optimization techniques: automated exposure control; mA and/or kV adjustment per patient size (includes targeted exams where dose is matched to clinical indication); or iterative reconstruction. COMPARISON: CT abdomen pelvis w con* [id number] 08/23/2020 1:32 PM RADIATION DOSE METRICS: Total DLP (mGy-cm): 1771.69 FINDINGS: Liver: Normal. No mass. Gallbladder and bile ducts: Gallbladder luminal distention is present measuring 5.0 cm. No intraluminal calculus identified. No wall thickening or pericholecystic fluid. Pancreas: Normal. No ductal dilation. Spleen: Normal. No splenomegaly. Adrenal glands: Normal. No mass. Kidneys and ureters: Right renal calculi, the largest in the posterior mid kidney measuring 2.6 mm. No hydronephrosis/obstructive uropathy. Stomach and bowel: Mild wall thickening of the descending and rectosigmoid colon. Right partial colectomy with ileo-ascending anastomosis. Appendix: Right partial colectomy with ileo-ascending anastomosis. Intraperitoneal space: No free air. No significant fluid collection. Vasculature: Infrarenal abdominal aortic aneurysm is present measuring 3.2 cm AP dimension, previously 3.0 cm. There is no evidence of rupture or leakage. The iliac vasculature shows marked bilateral atherosclerotic calcifications without evidence of aneurysm. Lymph nodes: Multiple small lymph nodes in the sigmoid colonic mesentery, largest measuring 6 mm short axis. Small lymph nodes are also present medial to the descending colon, largest 5 mm short axis. Urinary bladder: Unremarkable as visualized. Reproductive: The prostate gland is mildly enlarged measuring 4.9 cm transverse dimension, with nonspecific parenchymal calcifications. Bones/joints: Right lower lumbar facet primary osteoarthritis. Stable small likely benign cancellous bone sclerotic focus right ilium. Soft tissues: Unremarkable. CT/CT abdomen pelvis wo con [id number] IMPRESSION: 1. Mild wall thickening of the descending and rectosigmoid colon. The finding is consistent with mild nonspecific colitis. Clinical correlation to determine the specific etiology is recommended. 2. Right partial colectomy with ileo-ascending anastomosis. 3. Distended gallbladder. Gallbladder sonography may be helpful if clinically indicated. 4. Right renal calyceal lithiasis. 5. Infrarenal abdominal aortic aneurysm, slight interval increase in size. 6. Mild prostatic hypertrophy with chronic calcific prostatitis.
--- NOTE | 2021-10-03 11:43 | ED_ITS ---
HPI - Nausea/Vomiting/Diarrhea General: Chief complaint: Nausea/Vomiting/Diarrhea Stated complaint: severe diarrhea/abdominal pain Time Seen by Provider: 10/03/21 10:09 Source: patient Mode of arrival: ambulatory Limitations: no limitations History of Present Illness: 61-year-old male presents to the emergency room with abdominal pain and severe diarrhea. He has had some generalized abdominal pain localizes some midepigastric right upper quadrant area. He denies any hematemesis but he has had some streaky hematochezia. No significant amounts. He has seen his primary care doctor and they are scheduling to have a colonoscopy done. 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 He is also recently been treated for colitis. MD elicited complaint: nausea and diarrhea Onset (ago): month(s) (1) Description of diarrhea: blood, mucus and watery Associated nausea: Yes Associated abdominal pain: Yes Location of pain: Epigastric and RUQ Severity: mild Quality: cramping Exacerbating factors: none Relieving factors: none Associated symtoms: Reports fatigue, anorexia, malaise, nausea and weakness; Denies anxiety, bloating, change in vision, chest pain, cough, diaphoresis, decreased urine output, dizziness, dysuria, epistaxis, fecal incontinence, fever s/chills, headache(s), myalgias, numbness, palpitations, rash, short of breath, syncope, tenesmus or tinnitus Review of Systems Const: Reports: chills, change in appetite, fatigue and malaise; Denies: fever(s), body aches or diaphoresis Eyes: Denies: change in vision ENMT: Denies: tinnitus or epistaxis Card: Denies: chest pain, palpitations or syncope Resp: Denies: dyspnea, productive cough or non-productive cough GI: Reports: abdominal pain, nausea, GI cramping, change in stool character and hematochezia; Denies: diarrhea, bloating or fecal incontinence : Denies: flank pain, difficulty urinating, dysuria, urinary frequency or urinary urgency Skin/Breast: Denies: rash or pruritus Neuro: Denies: headache(s) or dizziness Psych: Denies: anxiety PFSH ED PFSH: Medical History Anxiety Depression Essential hypertension Heart disease Hypokalemia Migraines Ulcerative colitis Since 2005. Quiet on his colonoscopy of recent. Surgical History H/O cardiac radiofrequency ablation History of neck surgery S/P right hemicolectomy (09/09/20) Status post colonoscopy Family History Other CAD (coronary artery disease) Psychiatric illness Social History Smoking and tobacco status: former smoker Second hand smoke exposure: No Alcohol intake: never History of recent travel: No Current gender identity: Male Physical Exam Const: GENERAL APPEARANCE: cooperative and comfortable ORIENTATION/CON SCIOUSNESS: Yes awake, Yes oriented to person, Yes oriented to place and Yes oriented to time HENMT: COMMON NORMALS: normocephalic, atraumatic, hearing grossly normal bilaterally and external ears normal HEAD & SCALP: normocephalic and atraumatic EXTERNAL EAR: Yes external ears normal Neck/C-Spine: COMMON NORMALS: no JVD Resp: COMMON NORMALS: normal respiratory effort, No retractions, No use of accessory muscles and clear to auscultation bilaterally AUSCULTATION: clear to auscultation bilaterally Cardio: COMMON NORMALS: no JVD, regular rate, regular rhythm and No murmurs present (Cardio) RATE: regular rate RHYTHM: regular rhythm GI: COMMON NORMALS: Soft to palpation and No hepatosplenomegaly present AUSCULTATION: Yes normoactive bowel sounds PALPATION: Yes Soft to palpation, No Tenderness to palpation present (GI), No Guarding due to palpation present (GI) and Yes No hepatosplenomegaly present Extremity: COMMON NORMALS: normal to inspection, capillary refill normal, no clubbing, cyanosis or edema, no calf tenderness and no pedal edema Neuro: SENSORIUM/ORIENTATION: Yes oriented to person, Yes oriented to place and Yes oriented to time Skin: COMMON NORMALS: no rashes or lesions noted GENERAL SKIN EXAM: no rashes or lesions noted Course Vital Signs: Vital signs: Vital Signs Temperature 97.3 F L 10/03/21 10:08 Pulse Rate 84 10/03/21 14:40 Respiratory Rate 15 10/03/21 14:40 Blood Pressure 159/101 06/03/22 14:40 Pulse Oximetry 98 10/03/21 14:40 MDM - Nausea/Vomiting/Diarrhea Medical Decision Making Labs and imaging reviewed. Discussed with the radiologist he recommended a nonemergent follow-up MRCP. Patient should follow-up with his primary care doctor for that. Based on length of time he has had the symptoms recommend that he have stool for ova and parasites and C. difficile done. Recommend he follow- up with his primary care doctor. Started on Cipro and Flagyl for now. He was recently seen by his primary care doctor for ulcerative colitis should return to him to reevaluate other possible treatments. Medical Records I reviewed the patient's medical records. Lab Data I reviewed the patient's lab results. : 10/03/21 11:58 10/03/21 11:58 Radiology Impressions Abdomen/Pelvis CT 10/03/21 10:45 IMPRESSION: 1. Mild wall thickening of the descending and rectosigmoid colon. The finding is consistent with mild nonspecific colitis. Clinical correlation to determine the specific etiology is recommended. 2. Right partial colectomy with ileo-ascending anastomosis. 3. Distended gallbladder. Gallbladder sonography may be helpful if clinically indicated. 4. Right renal calyceal lithiasis. 5. Infrarenal abdominal aortic aneurysm, slight interval increase in size. 6. Mild prostatic hypertrophy with chronic calcific prostatitis. Gallbladder Ultrasound 10/03/21 11:45 IMPRESSION: Technically difficult examination. 1. Normal liver. 2. Fluid distended gallbladder. No gallbladder wall thickening or per icholecystic fluid. No cholelithiasis. 3. Dilatation of the common bile duct measuring 9.6 mm. No visualized obstructing calculi. This can be followed up with MRCP to exclude obstructing common bile duct calculus. 4. No hydronephrosis in RIGHT kidney. Laboratory Results WBC 6.6 10^3/uL (4.0-10.0) 10/03/21 11:58 RBC 5.07 10^6/uL (4.1-5.3) 10/03/21 11:58 Hgb 14.9 g/dL (11.7-16.6) 10/03/21 11:58 Hct 45.5 % (42.0-52.0) 10/03/21 11:58 MCV 89.7 fl (80-94) 10/03/21 11:58 MCH 29.4 pg (28.0-34.0) 10/03/21 11:58 MCHC 32.7 g/dL (30.0-36.0) 10/03/21 11:58 RDW 14.2 % (12.1-15.1) 10/03/21 11:58 Plt Count 436 10^3/cmm (130-400) H 10/03/21 11:58 MPV 8.9 fL (7.4-10.4) 10/03/21 11:58 Neut % (Auto) 58.0 % 10/03/21 11:58 Lymph % (Auto) 29.4 % 10/03/21 11:58 [place] % (Auto) 7.4 % 10/03/21 11:58 Eos % (Auto) 3.8 % 10/03/21 11:58 Baso % (Auto) 1.2 % 10/03/21 11:58 Neut # (Auto) 3.86 10^3/uL (1.8-7.7) 10/03/21 11:58 Lymph # (Auto) 2.0 10^3/uL (0.8-4.8) 10/03/21 11:58 [place] # (Auto) 0.5 10^3/uL (0.2-0.9) 10/03/21 11:58 Eos # (Auto) 0.3 10^3/uL (0.0-0.8) 10/03/21 11:58 Baso # (Auto) 0.1 10^3/uL (0.0-0.1) 10/03/21 11:58 Nucleated RBC % (auto) 0 % 10/03/21 11:58 Nucleated RBCs # 0.0 /100WBC 10/03/21 11:58 Sodium 136 mmol/L (136-145) 10/03/21 11:58 Potassium 5.5 mmol/L (3.5-5.1) H 10/03/21 11:58 Chloride 99 mmol/L (98-107) 10/03/21 11:58 Carbon Dioxide 24 mmol/L (22-29) 10/03/21 11:58 Anion Gap 18.5 (5-19) 10/03/21 11:58 BUN 10 mg/dL (8-23) 10/03/21 11:58 Creatinine 0.8 mg/dL (0.7-1.2) 10/03/21 11:58 GFR Calculation 98.0 mL/min (90-130) 10/03/21 11:58 Glucose 105 mg/dL (65-115) 10/03/21 11:58 Calculated Osmolality 281 mOsm/kg (285-295) L 10/03/21 11:58 Calcium 9.2 mg/dL (8.5-10.5) 10/03/21 11:58 Total Bilirubin 0.3 mg/dL (0.15-1.2) 10/03/21 11:58 AST 30 U/L (0-40) 10/03/21 11:58 ALT 42 U/L (0-41) H 10/03/21 11:58 Alkaline Phosphatase 100 IU/L (40-130) 10/03/21 11:58 Total Protein 7.8 g/dL (6.6-8.7) 10/03/21 11:58 Albumin 4.1 g/dL (3.5-5.2) 10/03/21 11:58 Globulin 3.7 g/dL (1.3-4.6) 10/03/21 11:58 Urine Color Yellow (Yellow) 10/03/21 11:58 Urine Appearance Clear (CLEAR) 10/03/21 11:58 Urine pH 5 (5-7) 10/03/21 11:58 Ur Specific [place] 1.010 (1.005-1.030) 10/03/21 11:58 Urine Protein Neg (Negative) 10/03/21 11:58 Urine Glucose (UA) Norm (Normal) 10/03/21 11:58 Urine Ketones Negative (Negative) 10/03/21 11:58 Urine Blood Neg (Negative) 10/03/21 11:58 Urine Nitrate Negative (Negative) 10/03/21 11:58 Urine Bilirubin Neg (Negative) 10/03/21 11:58 Urine Urobilinogen Norm mg/dL (Negative) 10/03/21 11:58 Ur Leukocyte Esterase Negative (Negative) 10/03/21 11:58 Discharge Plan Discharge Patient Disposition: Home Clinical Impression: Colitis Condition: Stable Prescriptions: New ciprofloxacin HCl 500 mg tablet 500 mg PO BID Qty: 20 0RF metronidazole 500 mg tablet 500 mg PO BID 10 Days Qty: 20 0RF ondansetron HCl 4 mg tablet 4 mg PO Q6H PRN (Reason: nausea and vomiting) Qty: 20 0RF No Action pantoprazole 40 mg tablet,delayed release (DR/EC) 40 mg PO QAM Qty: 90 3RF ezetimibe [Zetia] 10 mg tablet 10 mg PO DAILY Qty: 90 1RF amlodipine 10 mg tablet 10 mg PO DAILY Qty: 90 1RF carvedilol [Coreg] 25 mg tablet 25 mg PO BID Qty: 180 1RF Rx Instructions: must administer with a meal/food cyclobenzaprine 10 mg tablet 10 mg PO TID PRN (Reason: muscle spasm) Qty: 15 0RF Discharge Orders: Discharge ED (Routine); Ordered 10/03/21 Ordered By: Ryan Robertson Referrals: Ronen Benavides MD [Physician] - Discharge Diet: Clear Liquid Discharge Activity: Increase activity as tolerated Patient Instructions: Opioid Safety Activity Restrictions/Additional Instructions: Clear liquid diet for 24 to 48 hours then advance as tolerated. You may take small amounts of simple carbohydrates such as crackers or toast with the oral antibiotics. Follow-up with Dr. Benavides for endoscopy as scheduled. Coding Level of Care Code ED Fun House Attendant for [place] Fwd Exam Comprehensive
--- NOTE | 2021-10-03 11:45 | US_ITS ---
WS: [id number] ULTRASOUND ABDOMEN LIMITED CLINICAL INFORMATION: abd pain/diarrhea COMPARISON: CT October 03, 2021 FINDINGS: Technically difficult examination. Liver Size: Normal. Craniocaudal length: 15.7 cm. Echogenicity: Normal. Surface nodularity: None. Mass (size and location): None. Bile ducts Intrahepatic ducts: Normal. Common bile duct diameter: 9 mm. Gallbladder Fluid distended gallbladder. No cholelithiasis. No gallbladder wall thickening. Gallstones: None. Gallbladder sludge: None. Gallbladder wall thickening: None. Pericholecystic fluid: None. Sonographic [place] sign: Absent. Pancreas Not well seen Right kidney: Normal. Hydronephrosis: None. Size: 10.5 cm x 5.1 cm x 5.4 cm. Abdominal aorta and IVC Visualized portions are normal. Ascites: None. US/US gall bladder [id number] IMPRESSION: Technically difficult examination. 1. Normal liver. 2. Fluid distended gallbladder. No gallbladder wall thickening or pericholecys tic fluid. No cholelithiasis. 3. Dilatation of the common bile duct measuring 9.6 mm. No visualized obstruct ing calculi. This can be followed up with MRCP to exclude obstructing common bi le duct calculus. 4. No hydronephrosis in RIGHT kidney.
[2021-10-03 12:03] VITALS: BP 165/96; PULSE 79; RESP 16; O2SAT 97
[2021-10-03 12:13] LABS: Basophils # 0.1 10^3/uL (0.0-0.1); Basophils % 1.2 %; Eosinophils # 0.3 10^3/uL (0.0-0.8); Eosinophils % 3.8 %; Hematocrit 45.5 % (42.0-52.0); Hemoglobin 14.9 g/dL (11.7-16.6); Lymphocytes % 29.4 %; Mean Corpuscular HGB Conc 32.7 g/dL (30.0-36.0); Mean Corpuscular Hemoglobin 29.4 pg (28.0-34.0); Mean Corpuscular Volume 89.7 fl (80-94); Mean Platelet Volume 8.9 fL (7.4-10.4); Monocytes # 0.5 10^3/uL (0.2-0.9); Monocytes % 7.4 %; Neutrophils # 3.86 10^3/uL (1.8-7.7); Nucleated Red Blood Cells % 0 %; Platelet Count 436 10^3/cmm (130-400); Red Blood Count 5.07 10^6/uL (4.1-5.3); Red Cell Distribution Width 14.2 % (12.1-15.1); White Blood Count 6.6 10^3/uL (4.0-10.0)
[2021-10-03 12:15] LABS: Add Urine Microscopic? NO; Charge for UA Resulting for Rev
[2021-10-03 12:20] LABS: Bilirubin Urine Neg (Negative); Blood Urine Neg (Negative); Glucose Urine UA Norm (Normal); Ketones Urine Negative (Negative); Leukocyte Esterase Urine Negative (Negative); Nitrate Urine Negative (Negative); Protein Urine Neg (Negative); Urine Appearance Clear (CLEAR); Urine Color Yellow (Yellow); Urobilinogen Urine Norm (Negative); pH Urine 5 (5-7)
[2021-10-03 12:39] LABS: Albumin Level 4.1 g/dL (3.5-5.2); Alkaline Phosphatase 100 IU/L (40-130); Blood Urea Nitrogen 10 mg/dL (8-23); Calcium 9.2 mg/dL (8.5-10.5); Carbon Dioxide 24 mmol/L (22-29); Chloride 99 mmol/L (98-107); Globulin 3.7 g/dL (1.3-4.6); Glucose 105 mg/dL (65-115); Osmolality Calculated 281 mOsm/kg (285-295); Sodium 136 mmol/L (136-145); Total Bilirubin 0.3 mg/dL (0.15-1.2); Total Protein 7.8 g/dL (6.6-8.7)
[2021-10-03 12:50] LABS: Alanine Aminotransferase 42 U/L (0-41); Anion Gap 18.5 (5-19); Aspartate Amino Transferase 30 U/L (0-40); Potassium 5.5 mmol/L (3.5-5.1)
[2021-10-03 14:40] VITALS: BP 159/101; PULSE 84; RESP 15; O2SAT 98
== END 2021-10-03 14:36 | disposition home or self-care (01) ==
PROVIDERS: Emergency Provider Family Medicine; PCP Family Medicine
DX: K52.9 Noninfective gastroenteritis and colitis, unspecified (principal)
CPT/HCPCS: 74176; 76705; 80053; 81003; 85025; 99283

== ENCOUNTER → 2021-10-16 13:37 | Outpatient (BNVA) | payer MEDICARE, SELFPAY | PROVIDERS: PCP Family Medicine; Visit Provider Anesthesiology Pain Medicine | DX: M54.16 Radiculopathy, lumbar region (principal); Z87.891 Personal history of nicotine dependence; M54.12 Radiculopathy, cervical region | CPT/HCPCS: 62321; J1100 ==

== ENCOUNTER 2021-10-20 08:21 | Day surgery (SDC) | payer MEDICARE, SELFPAY ==
[2021-10-17 09:13] VITALS: BMI 28.7
--- NOTE | 2021-10-20 08:06 | P.HP_ITS ---
Same Day Surgery H&P Indication for Procedure/HPI DATE OF PROCEDURE: October 20, 2021 CHIEF COMPLAINT/INDICATIONFOR SURGICAL PROCEDURE: Hematochezia PREOP DIAGNOSIS: cecal mass PLANNED PROCEDURE: Operation Date: 10/20/21 10:30 Proposed Procedures p Colonoscopy 64835,K51.819(Not Applicable) - Ronen Benavides MD Medications/Allergies* Allergies/Adverse Reactions Allergy/AdvReac Type Severity Reaction Status Date / Time Evytqvj-FOL-JxF Reductase Allergy Severe cant walk Verified 10/17/21 09:09 Inhibitor [Ggnrqli-Mgp-Cnb Reductase Inhibitor] venom-wasp Allergy Severe carries an Verified 10/17/21 09:09 Epinephrine autoinjector throat closes. sulfamethoxazole Allergy Unknown Unknown Verified 10/17/21 09:09 [From Bactrim] trimethoprim [From Bactrim] Allergy Unknown Unknown Verified 10/17/21 09:09 oxycodone [From OxyContin] AdvReac Severe Makes Verified 10/17/21 09:09 angry & feel hot, heart races. cefaclor [From Ceclor] AdvReac Mild itch Verified 10/17/21 09:09 gabapentin AdvReac Mild ADR-Anxiety Verified 10/17/21 09:09 Pertinent History/Comorbid Conditions* Medical History (Updated 10/11/21 @ 00:00 by ) Anxiety Depression Essential hypertension Heart disease Hypokalemia Migraines Ulcerative colitis Since 2005. Quiet on his colonoscopy of recent. Surgical History (Updated 10/25/20 @ 17:06 by Alden Muñoz MD) H/O cardiac radiofrequency ablation History of neck surgery S/P right hemicolectomy (09/09/20) Status post colonoscopy Family History (Updated 01/09/20 @ 14:33 by Maria Luisa Baez LPN) CAD (coronary artery disease) Psychiatric illness Social History Smoking and tobacco status: former smoker Second hand smoke exposure: No Alcohol intake: never History of recent travel: No Current gender identity: Male Pertinent Exam Findings alert, oriented x 3, clear to auscultation bilaterally, regular rate & rhythm, operative site marked and procedure specific exam findings Recommendations Surgery/Procedure today Coding Level of Care Code Acute 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
[2021-10-20 10:16] LABS: Adenovirus Not Detected (NOT DETECT); Chlamydia Pneumoniae Not Detected (NOT DETECT); Coronavirus 229E,HKU1,NL63,OC4 Not Detected (NOT DETECT); Human Metapneumovirus Not Detected (NOT DETECT); Human Rhinovirus/Enterovirus Not Detected (NOT DETECT); Influenza A Not Detected (NOT DETECT); Influenza A H1 Not Detected (NOT DETECT); Influenza A H1-2009 Not Detected (NOT DETECT); Influenza A H3 Not Detected (NOT DETECT); Influenza B Not Detected (NOT DETECT); Mycoplasma Pneumoniae Not Detected (NOT DETECT); Parainfluenza Virus Type 1 Not Detected (NOT DETECT); Parainfluenza Virus Type 2 Not Detected (NOT DETECT); Parainfluenza Virus Type 3 Not Detected (NOT DETECT); Parainfluenza Virus Type 4 Not Detected (NOT DETECT); Respiratory Syncytial Virus A Not Detected (NOT DETECT); Respiratory Syncytial Virus B Not Detected (NOT DETECT); SARS-COV-2 Not Detected (NOT DETECT)
[2021-10-20 11:11] VITALS: BP 112/88; PULSE 81; RESP 18; TEMP 36.2; O2SAT 98
[2021-10-20] MEDS: sodium chloride 0.9% 1,000 ML 30 ML IV (11:17)
--- NOTE | 2021-10-20 11:40 | ANES.PREANE2 ---
Pre-Anesthetic Assessment Height/Weight: Height 1.78 m Weight 90.718 kg Temp Pulse Resp BP Pulse Ox 97.2 F L 81 18 112/88 98 10/20/21 11:11 10/20/21 11:11 10/20/21 11:11 10/20/21 11:11 10/20/21 11:11 Preop Diagnosis: UC with bleeding Operation Date: 10/20/21 11:30 Proposed Procedures p Colonoscopy 44483,K51.819(Not Applicable) - Ronen Benavides MD Familial anesthetic complications: None Was Beta Ethan taken within 24 hours: Yes Was Clonidine taken within 24 hours: N/A Last intake: Intake Last Liquid Date 10/19/21 Last Liquid Time 21:00 Last Solid Date 10/18/21 Last Solid Time 20:00 Social No alcohol and No tobacco Exam alert, oriented x 3, clear to auscultation bilaterally and regular rate & rhythm Airway Submandibular: within normal limits Cervical ROM: within normal limits Mallampati: Class I Dentition: full History/ROS No significant complaints Pulmonary None reported CV/HEM Arrythmia (s/p cardiac ablation ) and Hypertension None reported Hepatic None reported GI Gastroesophageal Reflux Disease diarrhea Metabolic None reported Musc/skel Osteoarthritis/DJD and None reported Neuropsych Anxiety, Depression, Headache and Neuropathy Anesthetic Plan Anesthesia: Anesthesia Evaluation and General Other: I discussed with the patient risks, goals, and benefits of MAC and general anesthesia. We discussed spectrum of MAC anesthesia including conversion to general as well as possibility of recall of intraoperative stimuli including discomfort/pain. Patient agrees to proceed with MAC. Risk of > 500 ml blood loss (7ml/kg in children): No Medications/Allergies Home Medications Medication Instructions Recorded Confirmed Last Taken Type amlodipine 10 mg tablet 10 mg PO DAILY #90 tab 05/19/21 10/17/21 10/20/21 Rx carvedilol 25 mg tablet (Coreg) 25 mg PO BID #180 tab 05/19/21 10/17/21 10/20/21 Rx ezetimibe 10 mg tablet (Zetia) 10 mg PO DAILY #90 tab 05/19/21 10/17/21 10/19/21 Rx cyclobenzaprine 10 mg tablet 10 mg PO TID PRN #15 tab 07/11/21 10/17/21 10/19/21 Rx Allergies Allergy/AdvReac Type Severity Reaction Status Date / Time Pzthddr-TZN-QnF Reductase Allergy Severe cant walk Verified 10/17/21 09:09 Inhibitor [Kgebzoq-Lne-Djv Reductase Inhibitor] venom-wasp Allergy Severe carries an Verified 10/17/21 09:09 Epinephrine autoinjector throat closes. sulfamethoxazole Allergy Unknown Unknown Verified 10/17/21 09:09 [From Bactrim] trimethoprim [From Bactrim] Allergy Unknown Unknown Verified 10/17/21 09:09 oxycodone [From OxyContin] AdvReac Severe Makes Verified 10/17/21 09:09 angry & feel hot, heart races. cefaclor [From Ceclor] AdvReac Mild itch Verified 10/17/21 09:09 gabapentin AdvReac Mild ADR-Anxiety Verified 10/17/21 09:09 Current Medications Generic Name Dose Route Start Last Admin Trade Name Freq PRN Reason Stop Dose Admin Sodium Chloride 1,000 mls @ 30 mls/hr 10/20/21 11:00 10/20/21 11:17 Sodium Chloride 0.9% IV 30 mls/hr .Q24H PETTY Administration PFSH Anesthesia Medical History Anxiety Depression Essential hypertension Heart disease Hypokalemia Migraines Ulcerative colitis Since 2005. Quiet on his colonoscopy of recent. Surgical History H/O cardiac radiofrequency ablation History of neck surgery S/P right hemicolectomy (09/09/20) Status post colonoscopy Family History Other CAD (coronary artery disease) Psychiatric illness Social History Smoking and tobacco status: former smoker Second hand smoke exposure: No Alcohol intake: never History of recent travel: No Current gender identity: Male Data Anesthesia COVID Results 10/20/21 08:24 Coronavirus 229E (PCR) Not detected SARS-CoV-2 (PCR) Not detected Cardiac Studies: No Data to Display
[2021-10-20 12:07] VITALS: BP 116/87; PULSE 88; RESP 18; O2SAT 98
--- NOTE | 2021-10-20 12:09 | ANE.PACU2 ---
Documented by User: Memo Ding CRNA 10/20/21 12:10 Inpatient post-anesthesia follow up: Airway intact: Yes Vital signs: Temperature 97.2 F Pulse Rate 81 Respiratory Rate 18 Blood Pressure 112/88 Pulse Oximetry 98 Oxygen Delivery Me thod Room Air Oxygen Flow Rate Fraction of Inspir ed Oxygen Hydration adequate: Yes Nausea and vomiting: No Pain level: 1 Mental status: Baseline
[2021-10-20 12:24] VITALS: BP 122/92; PULSE 84; RESP 18; O2SAT 98
== END 2021-10-20 12:45 | disposition home or self-care (01) ==
PROVIDERS: Anesthesiology; PCP Family Medicine; Visit Provider Internal Medicine
PROC: 0DJD8ZZ Inspection of Lower Intestinal Tract, Via Natural or Artificial Opening Endoscopic (ICD-10-PCS; CPT 45378; principal; 2021-10-20 11:30)
DX: K51.819 Other ulcerative colitis with unspecified complications (principal); K63.89 Other specified diseases of intestine; I10 Essential (primary) hypertension; K21.9 Gastro-esophageal reflux disease without esophagitis; M19.90 Unspecified osteoarthritis, unspecified site; F41.9 Anxiety disorder, unspecified; F32.9 Major depressive disorder, single episode, unspecified; Z87.891 Personal history of nicotine dependence
CPT/HCPCS: 45380; 87635; 88305; J2704; J7030

== ENCOUNTER → 2021-10-30 09:19 | Outpatient (BNVA) | payer MEDICARE, SELFPAY | PROVIDERS: PCP Family Medicine; Visit Provider Anesthesiology Pain Medicine | DX: M54.12 Radiculopathy, cervical region (principal); M79.602 Pain in left arm; M79.601 Pain in right arm; M62.838 Other muscle spasm; Z87.891 Personal history of nicotine dependence; Z79.891 Long term (current) use of opiate analgesic | CPT/HCPCS: 99214 ==

== ENCOUNTER → 2021-11-27 10:00 | Outpatient (BNVA) | payer MEDICARE, SELFPAY | PROVIDERS: PCP Family Medicine; Visit Provider Anesthesiology Pain Medicine | DX: M79.602 Pain in left arm (principal); M79.601 Pain in right arm; Z79.891 Long term (current) use of opiate analgesic; Z87.891 Personal history of nicotine dependence; M62.838 Other muscle spasm; M54.12 Radiculopathy, cervical region | CPT/HCPCS: 99214 ==

== ENCOUNTER 2021-12-04 13:43 | Emergency (ER) | payer MEDICARE, SELFPAY ==
[2021-12-04 14:00] VITALS: BP 123/84; PULSE 79; RESP 16; TEMP 36.4; O2SAT 99
[2021-12-04 15:26] LABS: Basophils # 0.1 10^3/uL (0.0-0.1); Eosinophils # 0.2 10^3/uL (0.0-0.8); Eosinophils % 2.4 %; Hematocrit 43.9 % (42.0-52.0); Hemoglobin 14.2 g/dL (11.7-16.6); Lymphocytes # 2.2 10^3/uL (0.8-4.8); Lymphocytes % 30.7 %; Mean Corpuscular HGB Conc 32.3 g/dL (30.0-36.0); Mean Corpuscular Volume 89.8 fl (80-94); Mean Platelet Volume 9.1 fL (7.4-10.4); Monocytes # 0.5 10^3/uL (0.2-0.9); Monocytes % 6.4 %; Neutrophils # 4.16 10^3/uL (1.8-7.7); Neutrophils % 59.2 %; Nucleated Red Blood Cells % 0 %; Platelet Count 353 10^3/cmm (130-400); Red Blood Count 4.89 10^6/uL (4.1-5.3); Red Cell Distribution Width 13.7 % (12.1-15.1)
[2021-12-04 15:55] LABS: Alanine Aminotransferase 24 U/L (0-41); Alkaline Phosphatase 94 IU/L (40-130); Anion Gap 14.9 (5-19); Aspartate Amino Transferase 13 U/L (0-40); Blood Urea Nitrogen 6 mg/dL (8-23); Calcium 9.7 mg/dL (8.5-10.5); Carbon Dioxide 27 mmol/L (22-29); Chloride 105 mmol/L (98-107); Globulin 3.2 g/dL (1.3-4.6); Glomerular Filtration Rate 85.5 mL/min (90-130); Glucose 91 mg/dL (65-115); Osmolality Calculated 291 mOsm/kg (285-295); Potassium 4.9 mmol/L (3.5-5.1); Sodium 142 mmol/L (136-145); Total Bilirubin 0.3 mg/dL (0.15-1.2); Total Protein 7.2 g/dL (6.6-8.7)
[2021-12-04 18:11] VITALS: BP 153/101; PULSE 78; RESP 21; O2SAT 100
--- NOTE | 2021-12-04 18:34 | W.ED.ABDPA2 ---
HPI - Abdominal Pain General: Chief Complaint: Nausea/Vomiting/Diarrhea Stated Complaint: Abd pains Time Seen by Provider: 12/04/21 17:45 Source: patient Mode of arrival: ambulatory History of Present Illness: 61-year-old male presents emergency room complaining of left lower quadrant abdominal discomfort he is little bit rectal bleeding as well. He was seen recently here in the emergency room and was given treatment for colitis on an outpatient basis he then had a colonoscopy which was reported to him as negative he has had a little bit of intermittent bleeding again now. Has not had any fever sweats chills no vomiting or diarrhea is noticed more blood when he wipes. MD elicited complaint: abdominal pain Onset (ago): day(s) Pain Consistency: intermittent Location: LLQ Severity: mild Quality: cramping Radiation: none Exacerbating factors: nothing Relieving factors: nothing Associated Symptoms: Reports GI cramping, hematochezia, nausea and poor appetite; Denies anorexia, belching, bloating, change in bowel habits, change in stool character, chills, coffee ground emesis, constipation, diarrhea, dyspepsia, dysuria, excessive flatus, fever(s), heartburn, hematuria, hematemesis, fecal incontinence, loose stools, melena, syncope and vomiting Review of Systems Const: Denies: fever(s), chills or fatigue ENMT: Denies: throat pain, ear or mastoid pain, nasal discharge or nasal congestion Card: Denies: chest pain or syncope Resp: Denies: dyspnea, productive cough or non-productive cough GI: Reports: abdominal pain, nausea, GI cramping and hematochezia; Denies: vomiting, hematemesis, coffee ground emesis, heartburn, diarrhea, constipation, bloating, belching, excessive flatus, fecal incontinence, change in bowel habits, change in stool character or melena : Denies: dysuria or hematuria Skin/Breast: Denies: rash or pruritus PFSH ED PFSH: Medical History Anxiety Depression Essential hypertension Heart disease Hypokalemia Migraines Ulcerative colitis Since 2005. Quiet on his colonoscopy of recent. Surgical History H/O cardiac radiofrequency ablation History of neck surgery S/P right hemicolectomy (09/09/20) Status post colonoscopy Family History Other CAD (coronary artery disease) Psychiatric illness Social History Smoking and tobacco status: former smoker Second hand smoke exposure: No Alcohol intake: never History of recent travel: No Current gender identity: Male Physical Exam Const: COMMON NORMALS: no acute distress GENERAL APPEARANCE: cooperative and comfortable ORIENTATION/CONSCIOUSNESS: Yes awake, Yes oriented to person, Yes oriented to place and Yes oriented to time HENMT: COMMON NORMALS: normocephalic, atraumatic and hearing grossly normal bilaterally HEAD & SCALP: normocephalic and atraumatic Resp: COMMON NORMALS: normal respiratory effort, No retractions, No use of accessory muscles and clear to auscultation bilaterally AUSCULTATION: clear to auscultation bilaterally Cardio: COMMON NORMALS: regular rate, regular rhythm and No murmurs present (Cardio) RATE: regular rate RHYTHM: regular rhythm GI: COMMON NORMALS: No hepatosplenomegaly present AUSCULTATION: Yes normoactive bowel sounds PALPATION: Yes Tenderness to palpation present (GI) Details: LLQ, No Guarding due to palpation present (GI) and Yes No hepatosplenomegaly present Extremity: COMMON NORMALS: normal to inspection, capillary refill normal, no clubbing, cyanosis or edema, no calf tenderness and no pedal edema Neuro: SENSORIUM/ORIENTATION: Yes oriented to person, Yes oriented to place and Yes oriented to time Skin: COMMON NORMALS: no rashes or lesions noted GENERAL SKIN EXAM: no rashes or lesions noted Course Vital Signs: Vital signs: Vital Signs Temperature 97.6 F 12/04/21 14:00 Pulse Rate 78 12/04/21 18:11 Respiratory Rate 21 H 12/04/21 18:11 Blood Pressure 153/101 12/04/21 18:11 Pulse Oximetry 100 12/04/21 18:11 Oxygen Delivery Me thod 12/04/21 18:11 MDM - Abdominal Pain Medical Decision Making Recent colonoscopy unremarkable. While patient does have some mild left lower quadrant tenderness with no guarding or rebound no anticipation with a normal white count that we find anything significant on his CT so we opted not to repeat the CT at this point. We will retreat him with Brittaniro and Flagyl him follow-up with Dr. Benavides. Clear liquid diet for the next 2 days. Medical Records I reviewed the patient's medical records. Lab Data I reviewed the patient's lab results. : 12/04/21 14:14 12/04/21 14:14 Labs/Radiology: Laboratory Results WBC 7.0 10^3/uL (4.0-10.0) 12/04/21 14:14 RBC 4.89 10^6/uL (4.1-5.3) 12/04/21 14:14 Hgb 14.2 g/dL (11.7-16.6) 12/04/21 14:14 Hct 43.9 % (42.0-52.0) 12/04/21 14:14 MCV 89.8 fl (80-94) 12/04/21 14:14 MCH 29.0 pg (28.0-34.0) 12/04/21 14:14 MCHC 32.3 g/dL (30.0-36.0) 12/04/21 14:14 RDW 13.7 % (12.1-15.1) 12/04/21 14:14 Plt Count 353 10^3/cmm (130-400) 12/04/21 14:14 MPV 9.1 fL (7.4-10.4) 12/04/21 14:14 Neut % (Auto) 59.2 % 12/04/21 14:14 Lymph % (Auto) 30.7 % 12/04/21 14:14 [place] % (Auto) 6.4 % 12/04/21 14:14 Eos % (Auto) 2.4 % 12/04/21 14:14 Baso % (Auto) 1.0 % 12/04/21 14:14 Neut # (Auto) 4.16 10^3/uL (1.8-7.7) 12/04/21 14:14 Lymph # (Auto) 2.2 10^3/uL (0.8-4.8) 12/04/21 14:14 [place] # (Auto) 0.5 10^3/uL (0.2-0.9) 12/04/21 14:14 Eos # (Auto) 0.2 10^3/uL (0.0-0.8) 12/04/21 14:14 Baso # (Auto) 0.1 10^3/uL (0.0-0.1) 12/04/21 14:14 Nucleated RBC % (auto) 0 % 12/04/21 14:14 Nucleated RBCs # 0.0 /100WBC 12/04/21 14:14 Sodium 142 mmol/L (136-145) 12/04/21 14:14 Potassium 4.9 mmol/L (3.5-5.1) 12/04/21 14:14 Chloride 105 mmol/L (98-107) 12/04/21 14:14 Carbon Dioxide 27 mmol/L (22-29) 12/04/21 14:14 Anion Gap 14.9 (5-19) 12/04/21 14:14 BUN 6 mg/dL (8-23) L 12/04/21 14:14 Creatinine 0.9 mg/dL (0.7-1.2) 12/04/21 14:14 GFR Calculation 85.5 mL/min (90-130) L 12/04/21 14:14 Glucose 91 mg/dL (65-115) 12/04/21 14:14 Calculated Osmolality 291 mOsm/kg (285-295) 12/04/21 14:14 Lactic Acid 1.0 mmol/L (0.5-2.2) 12/04/21 14:14 Calcium 9.7 mg/dL (8.5-10.5) 12/04/21 14:14 Total Bilirubin 0.3 mg/dL (0.15-1.2) 12/04/21 14:14 AST 13 U/L (0-40) 12/04/21 14:14 ALT 24 U/L (0-41) 12/04/21 14:14 Alkaline Phosphatase 94 IU/L (40-130) 12/04/21 14:14 Total Protein 7.2 g/dL (6.6-8.7) 12/04/21 14:14 Albumin 4.0 g/dL (3.5-5.2) 12/04/21 14:14 Globulin 3.2 g/dL (1.3-4.6) 12/04/21 14:14 Discharge Plan Discharge Patient Disposition: Home Clinical Impression: Colitis Condition: Stable Prescriptions: New Cipro 500 mg tablet 500 mg PO Q12H Qty: 20 0RF metronidazole 500 mg tablet 500 mg PO BID 10 Days Qty: 20 0RF ondansetron HCl 4 mg tablet 4 mg PO Q6H PRN (Reason: nausea and vomiting) Qty: 20 0RF No Action cyclobenzaprine 10 mg tablet 10 mg PO TID PRN (Reason: muscle spasm) Qty: 90 2RF tramadol 50 mg tablet 50 mg PO BID PRN (Reason: pain) Qty: 45 1RF ezetimibe [Zetia] 10 mg tablet 10 mg PO DAILY Qty: 90 1RF amlodipine 10 mg tablet 10 mg PO DAILY Qty: 90 1RF carvedilol [Coreg] 25 mg tablet 25 mg PO BID Qty: 180 1RF Rx Instructions: must administer with a meal/food Discharge Orders: Discharge ED (Routine); Ordered 12/04/21 Ordered By: Ryan Robertson Referrals: Teofilo Whalen MD [Primary Care Provider] - Discharge Diet: Full LIquid Discharge Activity: Increase activity as tolerated Patient Instructions: Opioid Safety Coding Level of Care Code 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
== END 2021-12-04 18:18 | disposition home or self-care (01) ==
PROVIDERS: Physician Assistant; Emergency Provider Family Medicine; PCP Family Medicine Adult Medicine
DX: K52.9 Noninfective gastroenteritis and colitis, unspecified (principal); I10 Essential (primary) hypertension; Z87.891 Personal history of nicotine dependence
CPT/HCPCS: 36415; 80053; 83605; 85025; 99283

== ENCOUNTER → 2022-01-29 09:46 | Outpatient (BNVA) | payer MEDICARE, SELFPAY | PROVIDERS: PCP Family Medicine Adult Medicine; Visit Provider Anesthesiology Pain Medicine | DX: M62.838 Other muscle spasm (principal); M54.12 Radiculopathy, cervical region; M79.602 Pain in left arm; M79.601 Pain in right arm; F17.200 Nicotine dependence, unspecified, uncomplicated | CPT/HCPCS: 99214 ==